=== PATIENT | male | born 1935 | race Caucasian/White ===

== ENCOUNTER 2016-09-20 00:41 | Emergency (ER) | payer MEDICARE ==
[~2016-09-20 00:41] MED LIST: ASPI81 PO; GLYB1TAB51 PO; IRBE150T51 PO; KLOR8TAB PO; MAGN400T PO; NIAS10004 PO; PIOG30 PO; PROT40TA PO; TAMS0.4C67 PO; TOPR25TA2 PO
[2016-09-20 00:43] VITALS: BP 136/90; PULSE 89; RESP 16; TEMP 97.4; O2SAT 95
[2016-09-20] MEDS ORDERED: NIAS1000 PO (01:14)
[2016-09-20] MEDS ORDERED: LISI-519 PO (01:14)
[2016-09-20] MEDS ORDERED: WARF-18 PO (01:14)
[2016-09-20] MEDS ORDERED: LOVA20TA PO (01:14)
[2016-09-20] MEDS ORDERED: ASPI81CH CHEW (01:14)
[2016-09-20] MEDS ORDERED: METO-309 PO (01:14)
[2016-09-20] MEDS ORDERED: SITA1TAB2 PO (01:14)
[2016-09-20] MEDS ORDERED: ALLO100T PO (01:14)
[2016-09-20] MEDS ORDERED: CARB10TA2 PO (01:14)
[2016-09-20] MEDS ORDERED: CARD120T4 PO (01:14)
[2016-09-20] MEDS ORDERED: TAMS5CAP PO (01:14)
[2016-09-20] MEDS ORDERED: FURO20TA PO (01:14)
[2016-09-20] MEDS ORDERED: METF500T PO (01:14)
[2016-09-20] MEDS ORDERED: LEVE500T8 PO (01:14)
[2016-09-20] MEDS ORDERED: LANO0.1212 PO (01:14)
[2016-09-20] MEDS ORDERED: BACT400T PO (01:15)
--- NOTE | 2016-09-20 02:03 | RADRPT ---
EXAM DATE/TIME: 09/20/2016 01:56 [facility] COMPARISON: No previous studies available for comparison. INDICATIONS : Trauma, fall. RADIATION DOSE: 39.84 CTDIvol (mGy) MEDICAL HISTORY : Hypertension. Diabetes mellitus type 2. Carcinoma, colon. SURGICAL HISTORY : None. ENCOUNTER: Initial ACUITY: 1 day PAIN SCALE: 2/10 LOCATION: cranial TECHNIQUE: Multiple contiguous axial images were obtained of the head. Using automated exposure control and adj ustment of the mA and/or kV according to patient size, radiation dose was kept as low as reasonably a chievable to obtain optimal diagnostic quality images. FINDINGS: CEREBRUM: Atrophy. The ventricles are normal for age. No evidence of midline shift, mass lesion, hemorrhage or acute infarction. No extra-axial fluid collections are seen. POSTERIOR FOSSA: The cerebellum and brainstem are intact. The 4th ventricle is midline. The cerebellopontine angle i s unremarkable. EXTRACRANIAL: The visualized portion of the orbits is intact. SKULL: Prior left parietal craniotomy. The calvaria is intact. No evidence of skull fracture. CONCLUSION: No acute disease. Wagner Martinez Jr., MD on September 20, 2016 at 2:01 Board Certified Radiologist. This report was verified electronically.
--- NOTE | 2016-09-20 02:16 | PD ---
HPI Chief Complaint: Fall Time Seen by Provider: 01:17 Travel History International Travel<30 days: No Contact w/Intl Traveler<30days: No Traveled to known affect area: No History of Present Illness HPI The patient is an 81-year-old male that apparently lost balance and fell onto a box tonight at about 0015 this morning. There was apparently no loss of consciousness and the patient has no nausea or vomiting. He is on Coumadin. He has had brain surgery in the past from a traumatic incident and 2015. His tetanus shot is about 2 years ago. PFSH Past Medical History Hx Anticoagulant Therapy: Yes (COUMADIN) Arthritis: Yes Asthma: No Autoimmune Disease: No Blood Disorders: No Anxiety: No Depression: No Heart Rhythm Problems: Yes Cancer: Yes (COLON) Cardiovascular Problems: Yes High Cholesterol: No Chemotherapy: No Chest Pain: Yes Congestive Heart Failure: No COPD: No Cerebrovascular Accident: No Coronary Artery Disease: Yes Diabetes: Yes Patient Takes Glucophage: Yes Diminished Hearing: No Endocrine: Yes Gastrointestinal Disorders: Yes GERD: No Glaucoma: No Headaches: No Hepatitis: No Hiatal Hernia: No Heparin Induced Thrombocytopen: No Hypertension: Yes Immune Disorder: No Implanted Vascular Access Dvce: No Kidney Stones: No Musculoskeletal: Yes Psychiatric: No Reproductive: No Respiratory: No Immunizations Current: Yes Migraines: No Myocardial Infarction: No Radiation Therapy: No Renal Failure: No Seizures: No Sickle Cell Disease: No Sleep Apnea: No Thyroid Disease: No Ulcer: No Tetanus Vaccination: Unknown Influenza Vaccination: No Past Surgical History Abdominal Surgery: No AICD: No Appendectomy: No Cardiac Surgery: Yes (3 vessel cabg 2001) Cholecystectomy: No Coronary Artery Bypass Graft: Yes Ear Surgery: No Endocrine Surgery: No Eye Surgery: No Genitourinary Surgery: No Gynecologic Surgery: No Insulin Pump: No Joint Replacement: No Neurologic Surgery: No Oral Surgery: No Pacemaker: No Thoracic Surgery: No Tonsillectomy: Yes Other Surgery: Yes Social History Alcohol Use: No Tobacco Use: No Substance Use: No Allergies-Medications (Allergen,Severity, Reaction): Coded Allergies: No Known Allergies (Verified , 09/20/16) Reported Meds & Prescriptions Reported Meds & Active Scripts Active Reported Bactrim (Sulfamethoxazole-Trimethoprim) 400-80 Mg Tab 1 Tab PO BID Warfarin 2.5 Mg Tab 2.5 Mg PO DAILY Niaspan (Niacin ER) 1,000 Mg Tab 1,000 Mg PO HS Lopressor (Metoprolol Tartrate) 50 Mg Tab 50 Mg PO BID Lovastatin 20 Mg Tab 20 Mg PO DAILY Lisinopril 5 Mg Tab 5 Mg PO DAILY Levetiracetam 500 Mg Tab 500 Mg PO BID Januvia (Sitagliptin Phosphate) 100 Mg Tab 100 Mg PO DAILY Metformin (Metformin HCl) 500 Mg Tab 500 Mg PO BIDPC With meals Furosemide 20 Mg Tab 20 Mg PO DAILY Flomax (Tamsulosin HCl) 0.4 Mg Cap 0.8 Mg PO HS Cardizem (Diltiazem HCl) 120 Mg Tab 180 Mg PO DAILY Lanoxin (Digoxin) 0.125 Mg Tab 125 Mcg PO DAILY Carbidopa-Levodopa 10-100 Mg Tab 1 Tab PO Q8HR Allopurinol 100 Mg Tab 100 Mg PO DAILY Aspirin 81 Mg Chew 81 Mg CHEW DAILY Review of Systems ROS Limitations: Poor Historian Except as stated in HPI: all other systems reviewed are Neg Physical Exam Narrative GENERAL: Well-nourished, slightly confused, elderly patient in no apparent distress. His vital signs are normal. SKIN: Warm and dry. HEAD: Normocephalic. There are multiple abrasions around the patient's face and right ear, these will be cleaned and bandaged. No active bleeding is present. Neither raccoon eyes or gonzalez sign is present. EYES: No scleral icterus. No injection or drainage. NECK: Supple, trachea midline. No JVD or lymphadenopathy. There is no neck tenderness present. CARDIOVASCULAR: Regular rate and rhythm without murmurs, gallops, or rubs. RESPIRATORY: Breath sounds equal bilaterally. No accessory muscle use. GASTROINTESTINAL: Abdomen soft, non-tender, nondistended. MUSCULOSKELETAL: No cyanosis, or edema. BACK: Nontender without obvious deformity. No CVA tenderness. Data Data Last Documented VS Vital Signs Date Time Temp Pulse Resp B/P Pulse Ox O2 Delivery O2 Flow Rate FiO2 09/20/16 01:24 16 09/20/16 00:43 97.4 89 136/[address] Brain W/O Iv Contrast(Rout) (09/20/16 01:17) MDM Medical Decision Making Medical Screen Exam Complete: Yes Emergency Medical Condition: Yes Medical Record Reviewed: Yes Interpretation(s) The CT brain shows no acute disease. It does show that the patient has had a prior left parietal craniotomy. No evidence of skull fracture. Differential Diagnosis Abrasions scalp and face, contusion face, scalp, fractured skull, intracranial bleed Narrative Course The patient appears to have only abrasions and contusions of the scalp and face. These will need cleaning but the patient otherwise appears to be doing fairly well following the fall. Diagnosis Primary Impression: Contusion of face, scalp and neck Additional Instructions: Bring Mr. Pino and should he start vomiting or have mental status change. Make sure that he is not allowed to trip over objects in the floor and make sure that the lighting is good in the house. Follow-up with his primary care physician when you get back to [place]. Med/Other Pt SpecificInfo: No Change to Meds Disposition: 01 DISCHARGE HOME Condition: Stable Pérez Brennan MD Sep 20, 2016 02:16
== END 2016-09-20 02:41 | disposition home or self-care (01) ==
LOC: EDSEX → NEPC 00:41
DX: S00.83XA Contusion of other part of head, initial encounter (principal); S00.03XA Contusion of scalp, initial encounter; S10.93XA Contusion of unspecified part of neck, initial encounter; S00.81XA Abrasion of other part of head, initial encounter; S00.411A Abrasion of right ear, initial encounter; I10 Essential (primary) hypertension; E11.9 Type 2 diabetes mellitus without complications; W18.39XA Other fall on same level, initial encounter; Z79.01 Long term (current) use of anticoagulants; Z79.84 Long term (current) use of oral hypoglycemic drugs; Z87.39 Personal history of other diseases of the musculoskeletal system and connective tissue; Z86.79 Personal history of other diseases of the circulatory system; Z85.038 Personal history of other malignant neoplasm of large intestine; Z87.19 Personal history of other diseases of the digestive system
CPT/HCPCS: 70450

== ENCOUNTER 2017-07-10 15:51 | Inpatient (IN) | payer MEDICARE ==
[~2017-07-10] VITALS: Ht 172.7 cm; Wt 77.0 kg
[2017-07-10] VITALS (7 sets, daily range): BP systolic 82–129; BP diastolic 46–64; PULSE 44–68; RESP 18; TEMP 97.3–98.2; O2SAT 96–99
[~2017-07-10 15:51] MED LIST changes: +ALLO100T PO; +ASPI-516 CHEW; -ASPI81 PO; +BACT400T PO; +CARB10TA2 PO; +CARD120T4 PO; +FURO20TA PO; -GLYB1TAB51 PO; -IRBE150T51 PO; -KLOR8TAB PO; +LANO0.1212 PO; +LEVE500T8 PO; +LISI-519 PO; +LOVA20TA PO; -MAGN400T PO; +METF500T PO; +METO-309 PO; +NIAS1000 PO; -NIAS10004 PO; -PIOG30 PO; -PROT40TA PO; +SITA1TAB2 PO; -TAMS0.4C67 PO; +TAMS5CAP PO; -TOPR25TA2 PO; +WARF-18 PO
--- NOTE | 2017-07-10 16:01 | PD ---
HPI Chief Complaint: syncope Time Seen by Provider: 16:01 Travel History International Travel<30 days: No Contact w/Intl Traveler<30days: No Traveled to known affect area: No History of Present Illness HPI 82-year-old male came to the emergency room brought in emergently from triage after he had a syncopal episode while coming out of the car. His daughter and came with him. In triage today or having difficulty time getting his blood pressure oxygen saturation. By the time patient came into the room and I went to see him he was awake and answering questions. The and the daughter were the main ones giving history. They said that this has happened to him multiple times in the past. He for past 1 month it has been occurring more frequently. 2 days ago he fell and hit his head. He is on warfarin. He has history of head bleed in the past. His blood pressure upon arrival was 82/ 46. He was awake and answering questions appropriately he is hard of hearing. PFSH Past Medical History Narrative Medical List of his past medical, surgical, social and family history is reviewed from the nursing note. Hx Anticoagulant Therapy: Yes (COUMADIN) Arthritis: Yes Asthma: No Autoimmune Disease: No Blood Disorders: No Anxiety: No Depression: No Heart Rhythm Problems: Yes Cancer: Yes (COLON) Cardiovascular Problems: Yes High Cholesterol: No Chemotherapy: No Chest Pain: Yes Congestive Heart Failure: No COPD: No Cerebrovascular Accident: No Coronary Artery Disease: Yes Diabetes: Yes Diminished Hearing: No Endocrine: Yes Gastrointestinal Disorders: Yes GERD: No Glaucoma: No Headaches: No Hepatitis: No Hiatal Hernia: No Heparin Induced Thrombocytopen: No Hypertension: Yes Immune Disorder: No Implanted Vascular Access Dvce: No Kidney Stones: No Musculoskeletal: Yes Psychiatric: No Reproductive: No Respiratory: No Immunizations Current: Yes Migraines: No Myocardial Infarction: No Radiation Therapy: No Renal Failure: No Seizures: No Sickle Cell Disease: No Sleep Apnea: No Thyroid Disease: No Ulcer: No Past Surgical History Abdominal Surgery: No AICD: No Appendectomy: No Cardiac Surgery: Yes (3 vessel cabg 2001) Cholecystectomy: No Coronary Artery Bypass Graft: Yes Ear Surgery: No Endocrine Surgery: No Eye Surgery: No Genitourinary Surgery: No Gynecologic Surgery: No Insulin Pump: No Joint Replacement: No Neurologic Surgery: No Oral Surgery: No Pacemaker: No Thoracic Surgery: No Tonsillectomy: Yes Other Surgery: Yes Social History Alcohol Use: No Tobacco Use: No Substance Use: No Allergies-Medications (Allergen,Severity, Reaction): Coded Allergies: No Known Allergies (Verified Allergy, Unknown, 07/10/17) Comments No known drug allergies. Reported Meds & Prescriptions Reported Meds & Active Scripts Active Reported Dutasteride 0.5 Mg Cap 0.5 Mg PO DAILY Levemir Inj (Insulin Detemir) 1,000 unit/ 10 ML Vial 50 Units SQ HS Do not mix with any other Insulin. Digoxin 0.125 Mg Tab 0.125 Mg PO DAILY Warfarin 2.5 Mg Tab 2.5 Mg PO DAILY friday, friday Niaspan (Niacin ER) 1,000 Mg Tab 1,000 Mg PO HS Lovastatin 20 Mg Tab 20 Mg PO DAILY Levetiracetam 500 Mg Tab 500 Mg PO BID Januvia (Sitagliptin Phosphate) 100 Mg Tab 100 Mg PO DAILY Metformin (Metformin HCl) 500 Mg Tab 500 Mg PO BIDPC With meals Furosemide 20 Mg Tab 20 Mg PO DAILY Flomax (Tamsulosin HCl) 0.4 Mg Cap 0.8 Mg PO HS Allopurinol 100 Mg Tab 100 Mg PO DAILY Aspirin 81 Mg Chew 81 Mg CHEW DAILY Narrative Medication List of her home medications reviewed from the nursing note. Review of Systems Except as stated in HPI: all other systems reviewed are Neg Cardiovascular: Positive: Syncope Physical Exam Narrative GENERAL: Awake, alert, elderly, frail SKIN: Focused skin assessment warm/dry. HEAD: Atraumatic. Normocephalic. EYES: Pupils equal and round. No scleral icterus. No injection or drainage. Ectropion both lower eyelids ENT: No nasal bleeding or discharge. Mucous membranes pink and moist. NECK: Trachea midline. No JVD. CARDIOVASCULAR: Regular rate and rhythm. No murmur appreciated. RESPIRATORY: No accessory muscle use. Clear to auscultation. Breath sounds equal bilaterally. GASTROINTESTINAL: Abdomen soft, non-tender, nondistended. Hepatic and splenic margins not palpable. MUSCULOSKELETAL: No obvious deformities. No clubbing. No cyanosis. No edema. NEUROLOGICAL: Awake and alert. No obvious cranial nerve deficits. Motor grossly within normal limits. Normal speech. PSYCHIATRIC: Appropriate mood and affect; insight and judgment normal. Data Data Last Documented VS Vital Signs Date Time Temp Pulse Resp B/P (MAP) Pulse Ox O2 Delivery O2 Flow Rate FiO2 1/11/18 19:03 65 18 110/54 (72) 99 Nasal Cannula 2.00 07/10/17 16:28 97.5 Orders Orders Electrocardiogram (07/10/17 16:09) Prothrombin Time / Inr (Pt) (07/10/17 16:09) Complete Blood Count With Diff (07/10/17 16:09) Basic Metabolic Panel (Bmp) (07/10/17 16:09) Troponin I (07/10/17 16:09) Urinalysis - C+S If Indicated (07/10/17 16:09) Ct Brain W/O Iv Contrast(Rout) (07/10/17 16:09) Ecg Monitoring (07/10/17 16:09) Iv Access Insert/Monitor (07/10/17 16:09) Oximetry (07/10/17 16:09) Sodium Chloride 0.9% Flush (Ns Flush) (07/10/17 16:15) Sodium Chlor 0.9% 1000 Ml Inj (Ns 1000 M (07/10/17 16:15) Digoxin (07/10/17 16:09) Chest, Single Ap (07/10/17 ) Sodium Chlorid 0.9% 500 Ml Inj (Ns 500 M (07/10/17 17:15) Admit Order (Ed Use Only) (07/10/17 19:09) Labs Laboratory Tests Test 07/10/17 15:50 White Blood Count 9.3 TH/MM3 Red Blood Count 3.89 MIL/MM3 Hemoglobin 12.1 GM/DL Hematocrit 35.8 % Mean Corpuscular Volume 92.0 FL Mean Corpuscular Hemoglobin 31.0 PG Mean Corpuscular Hemoglobin Concent 33.7 % Red Cell Distribution Width 16.3 % Platelet Count 179 TH/MM3 Mean Platelet Volume 7.3 FL Neutrophils (%) (Auto) 65.4 % Lymphocytes (%) (Auto) 21.2 % Monocytes (%) (Auto) 10.6 % Eosinophils (%) (Auto) 2.5 % Basophils (%) (Auto) 0.3 % Neutrophils # (Auto) 6.1 TH/MM3 Lymphocytes # (Auto) 2.0 TH/MM3 Monocytes # (Auto) 1.0 TH/MM3 Eosinophils # (Auto) 0.2 TH/MM3 Basophils # (Auto) 0.0 TH/MM3 CBC Comment DIFF FINAL Differential Comment Prothrombin Time 28.2 SEC Prothromb Time International Ratio 2.8 RATIO Blood Urea Nitrogen 26 MG/DL Creatinine 1.47 MG/DL Random Glucose 176 MG/DL Calcium Level 8.4 MG/DL Sodium Level 135 MEQ/L Potassium Level 3.9 MEQ/L Chloride Level 99 MEQ/L Carbon Dioxide Level 29.8 MEQ/L Anion Gap 6 MEQ/L Estimat Glomerular Filtration Rate 46 ML/MIN Troponin I 0.02 NG/ML Digoxin Level 0.8 NG/ML MDM Medical Decision Making Medical Screen Exam Complete: Yes Emergency Medical Condition: Yes Medical Record Reviewed: Yes Interpretation(s) Twelve-lead EKG was reviewed by me. A. fib and flutter, left axis deviation, right bundle branch block. Heart rate of 68 bpm. Differential Diagnosis Intracranial bleed, dysrhythmia, electrolyte abnormality Narrative Course 6:53 PM patient was given 1 L of IV fluid bolus which helped his blood pressure , but little. He was given another 500 ML's after that. Blood test results came back and within acceptable limit. Head CT was negative. However given the syncopal episode I would like to admit him for observation. I discussed with him and his and they have reluctantly agreed. Blood test was suggestive of some dehydration. Critical Care Narrative Aggregate critical care time was 45 minutes. Time to perform other separately billable procedures was not included in the critical care time. My time did not include minutes spent treating any other patients simultaneously or on activities that did not directly contribute to the patient's treatment. The services I provided to this patient were to treat and/or prevent clinically significant deterioration that could result in: Syncope, hypotension, dehydration I provided critical care services requiring my management, as noted below: Chart data review, documentation time, medication orders and management, vital sign assessments/reviewing monitor data, ordering and reviewing lab tests, ordering and interpreting/reviewing x-rays and diagnostic studies, care of the patient and discussion of the patient with the admitting physicians. Procedures EKG Prior to Arrival: No Diagnosis Primary Impression: Syncope Qualified Codes: R55 - Syncope and collapse Additional Impressions: Hypotension Qualified Codes: I95.9 - Hypotension, unspecified Dehydration Admitting Information Admitting Physician Requests: Observation Fabiola Ortiz MD Jul 10, 2017 16:01
[2017-07-10] MEDS ORDERED: SODIUM CHLOR 0.9% 1000 ML INJ 1,000 ML IV ONE (16:15)
[2017-07-10] MEDS ORDERED: SODIUM CHLORIDE 0.9% FLUSH 10 ML FLUSH IVF PRN (16:15)
[2017-07-10 16:52] LABS: AUTOMATED NEUTROPHIL # 6.1 TH/MM3 (1.8-7.7); BASOPHIL % 0.3 % (0.0-2.0); EOSINOPHIL # 0.2 TH/MM3 (0-0.4); EOSINOPHIL % 2.5 % (0.0-4.0); HEMATOCRIT 35.8 % (39.0-51.0); HEMOGLOBIN 12.1 GM/DL (13.0-17.0); LYMPH % 21.2 % (9.0-44.0); MEAN CORPUSCULAR HGB CONC 33.7 % (32.0-36.0); MEAN PLATELET VOLUME 7.3 FL (7.0-11.0); MONO % 10.6 % (0.0-8.0); NEUT % 65.4 % (16.0-70.0); PLATELET COUNT 179 TH/MM3 (150-450); RED BLOOD COUNT 3.89 MIL/MM3 (4.50-5.90); RED CELL DISTRIBUTION WIDTH 16.3 % (11.6-17.2); WHITE BLOOD COUNT 9.3 TH/MM3 (4.0-11.0)
[2017-07-10] MEDS ORDERED: DUTA1CAP2 PO (16:57)
[2017-07-10] MEDS ORDERED: LEVEMIR SQ (16:57)
[2017-07-10] MEDS ORDERED: DIGO0.12 PO (16:57)
[2017-07-10 17:03] LABS: INTERNATIONAL NORMALIZED RATIO 2.8 RATIO; PROTHROMBIN TIME - PATIENT 28.2 SEC (9.8-11.6)
--- NOTE | 2017-07-10 17:03 | RADRPT ---
EXAM DATE/TIME: 07/10/2017 16:39 [facility] COMPARISON: No previous studies available for comparison. INDICATIONS : Chest pain and weakness. MEDICAL HISTORY : Hypertension. Diabetes mellitus type 2. Carcinoma, colon. SURGICAL HISTORY : CABG. ENCOUNTER: Initial ACUITY: 1 day PAIN SCORE: 3/10 LOCATION: Bilateral chest FINDINGS: A single view of the chest demonstrates the lungs to be symmetrically aerated without evidence of mas s, infiltrate or effusion. There is mild streaky opacity in the left perihilar region most consistent with atelectasis or scarring. The cardiomediastinal contours are unremarkable. Osseous structures a re intact. The patient is status post median sternotomy. Atherosclerotic calcifications are present i n the aorta. There's implantable right-sided portacatheter in place. CONCLUSION: 1. Mild apparent scarring or atelectasis in the left midlung. 2. No acute cardiac pulmonary disease. Yaw Waggoner MD on July 10, 2017 at 16:57 Board Certified Radiologist. This report was verified electronically.
[2017-07-10 17:07] LABS: BICARBONATE 29.8 MEQ/L (21.0-32.0); CALCIUM 8.4 MG/DL (8.5-10.1); CREATININE 1.47 MG/DL (0.60-1.30)
[2017-07-10] MEDS ORDERED: SODIUM CHLORID 0.9% 500 ML INJ 500 ML IV ONE (17:15)
[2017-07-10 17:23] LABS: DIGOXIN 0.8 NG/ML (0.8-2.0); TROPONIN I 0.02 NG/ML (0.02-0.05)
--- NOTE | 2017-07-10 17:30 | RADRPT ---
EXAM DATE/TIME: 07/10/2017 17:05 [facility] COMPARISON: CT BRAIN W/O CONTRAST, September 20, 2016, 1:56. INDICATIONS : Fall two days ago, generalized weakness. RADIATION DOSE: 56.37 CTDIvol (mGy) MEDICAL HISTORY : Carcinoma, colon. Cardiovascular disease Hyperthyroidism.Diabetes. SURGICAL HISTORY : None. ENCOUNTER: Initial ACUITY: 2 days PAIN SCALE: 0/10 LOCATION: cranial TECHNIQUE: Multiple contiguous axial images were obtained of the head. Using automated exposure control and adj ustment of the mA and/or kV according to patient size, radiation dose was kept as low as reasonably a chievable to obtain optimal diagnostic quality images. DICOM format image data is available electro nically for review and comparison. FINDINGS: CEREBRUM: The ventricles are normal for age. No evidence of midline shift, mass lesion, hemorrhage or acute in farction. No extra-axial fluid collections are seen. POSTERIOR FOSSA: The cerebellum and brainstem are intact. The 4th ventricle is midline. The cerebellopontine angle i s unremarkable. EXTRACRANIAL: The visualized portion of the orbits is intact. SKULL: The calvaria is intact. No evidence of skull fracture. Postoperative changes are again noted with mu ltiple georgie holes. CONCLUSION: Stable noncontrast head CT with no evidence of fracture or hemorrhage. Yaw Waggoner MD on July 10, 2017 at 17:27 Board Certified Radiologist. This report was verified electronically.
[2017-07-10] MEDS ORDERED: NALOXONE HCL 0.4 MG/ML AMP IV PUSH PRN (20:00)
[2017-07-10] MEDS ORDERED: SODIUM CHLORIDE 0.9% FLUSH 10 ML FLUSH IV FLUSH PRN (20:00)
[2017-07-10] MEDS ORDERED: GLUCAGON 1 MG/ML VIAL OTHER PRN (20:30)
[2017-07-10] MEDS ORDERED: DEXTROSE 50% IN WATER 50 ML VIAL(D50) IV PUSH PRN (20:30)
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
[2017-07-10] MEDS: INSULIN ASPART SUPPLEMENTAL SCALE SQ SCH (21:00)
[2017-07-10] MEDS: SODIUM CHLORIDE 0.9% FLUSH 10 ML FLUSH IV FLUSH SCH (21:00)
[2017-07-10 21:24] LABS: AMORPHOUS SEDIMENT, URINE RARE; BACTERIA, URINE MANY /hpf; BILIRUBIN, URINE NEG (NEG); BLOOD, URINE SMALL (NEG); GLUCOSE,URINE NEG (NEG); HYALINE CAST, URINE 16 /lpf (RARE); KETONE, URINE TRACE mg/dL (NEG); NITRITE,URINE NEG (NEG); PH, URINE 5.5 (5.0-8.5); URINE COLOR YELLOW (YELLW/STRAW); URINE LEUKOCYTE ESTERASE LARGE (NEG)
[2017-07-10] MEDS ORDERED: TAMSULOSIN HCL 0.4 MG CAP PO SCH (21:45)
[2017-07-10] MEDS ORDERED: DIGOXIN 0.125 MG TAB PO ONE (22:00)
[2017-07-10] MEDS ORDERED: CARBIDOPA/LEVODOPA 10 MG/100 MG TAB PO SCH (22:00)
--- NOTE | 2017-07-10 22:35 | RADRPT ---
EXAM DATE/TIME: 07/10/2017 21:32 [facility] COMPARISON: No previous studies available for comparison. INDICATIONS : Syncope. MEDICAL HISTORY : Hypertension. Benign prostatic hyperplasia, (BPH) Left hand tremor. Coronary artery disease. Antico agulant therapy. Irregular heartbeat. Arthritis. Diabetes. Colon cancer. SURGICAL HISTORY : Tonsillectomy. CABG. ENCOUNTER: Initial ACUITY: 1 day PAIN SCORE: 0/10 LOCATION: Bilateral neck PEAK SYSTOLIC VELOCITIES (cm/sec): ICA/CCA RATIO: Right: 0.8 Left: 0.7 ICA: Right: 92 Left: 76 CCA: Right: 116 Left: 115 ECA: Right: 136 Left: 124 VERTEBRAL: Right: 32 antegrade Left: 53 antegrade Elevated flow velocities and ICA/CCA ratios have been found to correlate with increased degrees of vessel stenosis, calculated as percentage of diameter relative to a normal segment of distal ICA/CCA FINDINGS: RIGHT CAROTID: Mild to moderate plaque of the bulb and proximal internal carotid artery with 30% or less narrowing. LEFT CAROTID: Long segment moderate to severe atherosclerotic plaque beginning at the level of the mid common carot id and extending into the bulb and proximal ICA. 50% or less narrowing estimated. Doppler interrogati on within normal limits. VERTEBRAL ARTERIES: Antegrade flow is seen in both vertebral arteries. MISCELLANEOUS: None. CONCLUSION: Bilateral carotid atherosclerosis, mild to moderate and fairly focal on the right, moderate and longe r segment on the left. Please see above. No hemodynamically significant stenosis demonstrated on [facility] side. Macario Hollis MD on July 10, 2017 at 22:31 Board Certified Radiologist. This report was verified electronically.
[2017-07-11] VITALS (15 sets, daily range): BP systolic 66–141; BP diastolic 43–89; PULSE 66–146; RESP 18–20; TEMP 96.1–98.2; O2SAT 91–99
[2017-07-11] MEDS ORDERED: cefTRIAXone INJ 1,000 MG in SODIUM CHLORIDE 0.9% INJ 100 ML IV SCH (00:15)
[2017-07-11] MEDS: NIACIN 500 MG EXTENDED RELEASE TAB PO SCH ×2 (00:15→20:59)
[2017-07-11] MEDS: levETIRAcetam 500 MG TAB PO SCH ×3 (00:15→21:00)
[2017-07-11 00:53] LABS: TROPONIN I 0.02 NG/ML (0.02-0.05)
[2017-07-11] MEDS ORDERED: CARB25TA9 PO (00:58)
[2017-07-11] MEDS ORDERED: LISI2.5T3 PO (01:01)
[2017-07-11] MEDS ORDERED: METO25TA3 PO (01:03)
[2017-07-11] MEDS ORDERED: WARF-23 PO (01:07)
[2017-07-11 04:12] LABS: AUTOMATED NEUTROPHIL # 6.7 TH/MM3 (1.8-7.7); BASOPHIL % 0.5 % (0.0-2.0); EOSINOPHIL # 0.2 TH/MM3 (0-0.4); EOSINOPHIL % 2.4 % (0.0-4.0); HEMATOCRIT 33.7 % (39.0-51.0); HEMOGLOBIN 11.5 GM/DL (13.0-17.0); LYMPH % 15.5 % (9.0-44.0); LYMPHOCYTE # 1.4 TH/MM3 (1.0-4.8); MEAN CELL VOLUME 91.6 FL (80.0-100.0); MEAN CORPUSCULAR HEMOGLOBIN 31.2 PG (27.0-34.0); MEAN PLATELET VOLUME 7.7 FL (7.0-11.0); MONO % 8.8 % (0.0-8.0); MONOCYTE # 0.8 TH/MM3 (0-0.9); NEUT % 72.8 % (16.0-70.0); PLATELET COUNT 137 TH/MM3 (150-450); RED BLOOD COUNT 3.67 MIL/MM3 (4.50-5.90); RED CELL DISTRIBUTION WIDTH 15.9 % (11.6-17.2); WHITE BLOOD COUNT 9.3 TH/MM3 (4.0-11.0)
[2017-07-11 04:23] LABS: INTERNATIONAL NORMALIZED RATIO 3.2 RATIO; PROTHROMBIN TIME - PATIENT 31.9 SEC (9.8-11.6)
[2017-07-11 04:46] LABS: BICARBONATE 28.2 MEQ/L (21.0-32.0); CALCIUM 7.8 MG/DL (8.5-10.1); CREATININE 1.04 MG/DL (0.60-1.30)
[2017-07-11 04:50] LABS: TROPONIN I 0.03 NG/ML (0.02-0.05)
[2017-07-11] MEDS: CARBIDOPA/LEVODOPA 25 MG/100 MG TAB PO SCH ×3 (06:02→21:00)
[2017-07-11] MEDS ORDERED: SODIUM CHLOR 0.9% 250 ML INJ 250 ML IV ONE (06:30)
[2017-07-11] MEDS: ACETAMINOPHEN 325 MG TAB PO PRN (06:32)
[2017-07-11] MEDS: INSULIN ASPART SUPPLEMENTAL SCALE SQ SCH (08:00)
[2017-07-11] MEDS ORDERED: DIGOXIN 0.125 MG TAB PO SCH (09:00)
[2017-07-11] MEDS ORDERED: PRAVASTATIN SOD 20 MG TAB PO SCH (09:00)
--- NOTE | 2017-07-11 09:36 | HHI.FF ---
Face to Face Verification Diagnosis: (1) Diabetes (2) Parkinson disease (3) Hypotension (4) Syncope Physical Therapy Order: Evaluate and Treat, Improve ambulation, Strength and gait training Home Health Nursing Order: Medical education Signs/symptoms of disease process Diabetic education Nursing assessment with vital signs I have seen patient Karthik Price on 07/11/17. My clinical findings support the need for the requested home health care services because: Ltd mobility - disease progression Deconditioned w/ increased weakness Limited ability to care for self I certify that my clinical findings support that this patient is homebound because: Unsteady gait/balance Unsafe to leave home unassisted Unable to use public transportation Sun Hartman PA-C Jul 11, 2017 09:36
--- NOTE | 2017-07-11 09:39 | HHI.PR ---
Subjective Remarks in no acute distress. denies chest pain, sob or dizziness. HR and BP trend noted. family at the bedside. d/w the RN. Objective Vitals Vital Signs Date Time Temp Pulse Resp B/P (MAP) Pulse Ox O2 Delivery O2 Flow Rate FiO2 07/11/17 08:41 146 18 75/43 (54) 93 07/11/17 08:41 125 18 66/47 (53) 95 07/11/17 08:40 96.7 93 18 115/59 (77) 94 07/11/17 04:48 98.2 78 20 108/59 (75) 95 07/11/17 00:34 97.7 71 20 114/58 (76) 99 07/10/17 21:15 97.3 68 18 129/64 (85) 96 07/10/17 20:51 61 18 117/63 (81) 98 07/10/17 19:03 65 18 110/54 (72) 99 Nasal Cannula 2.00 07/10/17 17:38 47 18 101/52 (68) 99 Room Air 07/10/17 16:28 97.5 66 18 92/50 (64) 98 Nasal Cannula 2.00 07/10/17 16:12 98.1 44 18 82/46 (58) 96 07/10/17 15:52 98.2 Room Air I/O 07/10/17 07/10/17 07/10/17 07/11/17 07/11/17 07/11/17 07:00 15:00 23:00 07:00 15:00 23:00 Intake Total 1700 ml 100 ml 250 ml Output Total 400 ml Balance 1700 ml -300 ml 250 ml Intake Oral 200 ml IV Total 1500 ml 100 ml 250 ml Output Urine Total 400 ml Result Diagram: 07/11/17 0348 07/11/17 0348 Imaging Last Impressions Head CT 07/10/17 1609 Signed Impressions: Service Date/Time: June 17:05 - CONCLUSION: Stable noncontrast head CT with no evidence of fracture or hemorrhage. Yaw Waggoner MD Chest X-Ray 07/10/17 0000 Signed Impressions: Service Date/Time: June 16:39 - CONCLUSION: 1. Mild apparent scarring or atelectasis in the left midlung. 2. No acute cardiac pulmonary disease. Yaw Waggoner MD Carotid Artery Ultrasound 07/10/17 0000 Signed Impressions: Service Date/Time: June 21:32 - CONCLUSION: Bilateral carotid atherosclerosis, mild to moderate and fairly focal on the right, moderate and longer segment on the left. Please see above. No hemodynamically significant stenosis demonstrated on either side. Macario Hollis MD Objective Remarks GENERAL: elderly male, in no apparent distress. CARDIOVASCULAR: Regular rate and regular rhythm without murmurs, gallops, or rubs. RESPIRATORY: Clear to auscultation. Breath sounds equal bilaterally. No wheezes , rales, or rhonchi. GASTROINTESTINAL: Abdomen soft, non-tender, nondistended. Normal, active bowel sounds MUSCULOSKELETAL: some tenderness on the left chest wall NEURO: Alert & Oriented x4 to person, place, time, situation. Moves all ext x4 Medications and IVs Inpatient Medications Acetaminophen (Tylenol) 650 mg Q4H PRN PO pain Last administered on 07/11/17at 06:32; Start 07/11/17 at 06:30 Allopurinol (Zyloprim) 100 mg DAILY PO ; Start 07/11/17 at 09:00 Aspirin (Aspirin Chew) 81 mg DAILY CHEW ; Start 07/11/17 at 09:00 Carbidopa/Levodopa (Sinemet 25-100 Mg) 1 tab Q8HR PO Last administered on at 06:02; Start 07/11/17 at 06:00 Ceftriaxone Sodium 1000 mg/ Sodium Chloride 100 ml @ 200 mls/hr HS IV Last administered on 07/11/17at 01:41; Start 07/11/17 at 00:15 Dextrose (D50w (Vial) Inj) 50 ml UNSCH PRN IV PUSH HYPOGLYCEMIA-SEE COMMENTS; Start 07/10/17 at 20:30 Digoxin (Lanoxin) 0.125 mg ONCE ONCE PO Last administered on 07/11/17at 00:15; Start 07/10/17 at 22:00; Stop 07/10/17 at 22:03; Status DC Finasteride (Proscar) 5 mg DAILY PO ; Start 07/11/17 at 09:00 Glucagon (Glucagon Inj) 1 mg UNSCH PRN OTHER HYPOGLYCEMIA-SEE COMMENTS; Start 07/10/17 at 20:30 Influenza Virus Vaccine (Flu (Quadrivalent) Vaccine Inj) 0.5 ml ONCE ONCE IM ; Start 07/12/17 at 10:00; Stop 07/12/17 at 10:01 Insulin Aspart (NovoLOG SUPPLEMENTAL SCALE) 1 ACHS SLIDING SCALE SQ ; Start 05/17 at 21:00 Levetriacetam (Keppra) 500 mg BID PO Last administered on 07/11/17at 00:15; Start 07/10/17 at 21:45 Naloxone HCl (Narcan Inj) 0.4 mg UNSCH PRN IV PUSH SEE LABEL COMMENTS; Start at 20:00 Niacin (Slo-Niacin) 1,000 mg HS PO Last administered on 07/11/17at 00:15; Start 07/10/17 at 21:45 Pravastatin Sodium (Pravachol) 20 mg DAILY PO ; Start 07/11/17 at 09:00 Sodium Chloride 250 ml @ 250 mls/hr BOLUS ONCE IV Last administered on at 06:38; Start 07/11/17 at 06:30; Stop 07/11/17 at 07:29; Status DC Sodium Chloride (NS Flush) 2 ml BID IV FLUSH ; Start 07/10/17 at 21:00 Tamsulosin HCl (Flomax) 0.8 mg HS PO ; Start 07/11/17 at 09:00 Warfarin Sodium (Coumadin) 2.5 mg DAILY@1600 PO ; Start 07/11/17 at 16:00 A/P Problem List: (1) Hypotension ICD Code: I95.9 - Hypotension, unspecified Status: Acute (2) Syncope ICD Code: R55 - Syncope and collapse Status: Acute (3) Dehydration ICD Code: E86.0 - Dehydration Status: Acute Assessment and Plan A/P Hypotension - hold metoprolol, lisinopril, and lasix for now; consider reduction in doses prior to reinitiation - continue to monitor closely . recurrent Syncope -serial troponin negative - Carotid ultrasound to rule with no significant stenosis - 2-D echocardiogram to evaluate cardiac structure and function -consult cardiology. Dehydration - received IV fluid- -will monitor Acute on chronic renal insufficiency- improving -continue to monitor. - Avoid nephrotoxins Possible UTI - Ceftriaxone 1 g IV every 24 hours -Urine culture sent, follow results and adjust treatment accordingly left sided chest wall pain after a fall - check rib series Type 2 Diabetes Mellitus - Hold oral hypoglycemic agents - Accu-Cheks before meals and at bedtime with low-dose NovoLog sliding scale coverage - Hypoglycemia protocol - Monitor trends and blood glucose readings and adjust treatments as indicated DVT prophylaxis - On Coumadin ; hold today. - Recheck PT/INR in a.m. . Discharge Planning not ready for discharge- BP still on low-side- consulted cardiology today. Problem Qualifiers (1) Hypotension: Qualified Codes: I95.9 - Hypotension, unspecified (2) Syncope: Qualified Codes: R55 - Syncope and collapse Gumaro Rich MD Jul 11, 2017 09:39
[2017-07-11] MEDS: SODIUM CHLORIDE 0.9% FLUSH 10 ML FLUSH IV FLUSH SCH ×2 (09:44→21:00)
[2017-07-11] MEDS: ALLOPURINOL 100 MG TAB PO SCH (09:44)
[2017-07-11] MEDS: FINASTERIDE 5 MG TAB PO SCH (09:44)
[2017-07-11] MEDS: ASPIRIN 81 MG CHEW TAB CHEW SCH (09:44)
[2017-07-11] MEDS ORDERED: DIATRIZOATE MEGLUM/DIATRIZOATE SOD 9 ML CUP PO ONE (10:30)
[2017-07-11] MEDS: TAMSULOSIN HCL 0.4 MG CAP PO SCH ×2 (11:07→21:00)
--- NOTE | 2017-07-11 11:21 | MB ---
cc: DUDLEY DE LA FUENTE DATE OF CONSULTATION 07/11/2017 INDICATIONS Syncope HISTORY OF PRESENT ILLNESS This is an 82-year-old [place] mid [place]. He has a prior history of Parkinson's disease with , brain hemorrhage, rectal cancer status post chemotherapy in addition to coronary disease. He presents now with several recent syncopal events. He himself is a very poor historian and does not recall the events at all. Most of the history is obtained from his . She states that the majority, is not all, the events were while he was standing, either walking or just recently arose from a sitting position. The last syncopal episode occurred after using the bathroom. He stood up to wash his hands and then felt lightheaded and whoozy. He mentioned to his daughter who caught him as he started to pass out. He has had a couple falls, but no significant severe trauma. Denies any prodrome symptoms. No chest pain or shortness of breath or palpitations. These occurred now several days apart, but they have become more frequent recently. He has a history of atrial fibrillation but this morning developed some rapid ventricular rate. His blood pressure also dropped quite dramatically. I do not know if he had just recently gotten up to the bathroom or changed positions, but there was one systolic pressure in the 60s and 70 mmHg range. That did recover quite quickly. He had been on beta mario which was held on his initial hospitalization. He is currently going over a CT scanner now. I PAST MEDICAL HISTORY As mentioned above: 1. Pulmonary embolism 2. Brain hemorrhage 3. Rectal cancer status post chemotherapy and radiation 4. History of coronary disease with prior bypass surgery back in 2001. 5. Benign prostatic hypertrophy. 6. Diabetes 7. Hyperlipidemia PAST SURGICAL HISTORY He has a past surgical history includin. Craniotomy 2. CABG 3. Carotid endarterectomy 4. Inferior vena cava filter placement MEDICATIONS Reported medications include: 1. Levemir 2. Digoxin 3. Warfarin 4. Niaspan 5. Lopressor 6. Lovastatin 7. Lisinopril 8. Januvia 9. Metformin 10. Lasix 11. Flomax 12. Carbidopa 13. Allopurinol 14. Aspirin ALLERGIES NO KNOWN DRUG ALLERGIES. FAMILY HISTORY Denies any family history of early coronary disease or sudden cardiac . SOCIAL HISTORY Denies any alcohol, tobacco or drug use. REVIEW OF SYSTEMS A 12-point review of systems was performed and is negative unless otherwise as noted in the history of present illness. PHYSICAL EXAMINATION VITAL SIGNS: Temperature is 96, pulse is 73, blood pressure of 106/55 mmHg. GENERAL: Alert and oriented x3 in no acute distress. HEENT: Exam shows pupils reactive to light and accommodation. Extraocular movements are intact. NECK: No elevation of jugular venous distension. No thyromegaly. No lymphadenopathy. No carotid bruit. LUNGS: Clear to auscultation bilaterally. CARDIOVASCULAR: Reveals an irregular irregular rhythm without murmurs, rubs or gallops. ABDOMEN: Nontender, nondistended. Good bowel sounds. No hepatosplenomegaly. EXTREMITIES: Show no clubbing, cyanosis or edema. Good peripheral pulses. NEUROLOGIC: Cranial nerves intact. Motor sensory grossly intact. LABORATORY DATA WBC 9.3 hemoglobin is 11.5, platelet count 137, INR is 3.2. Sodium 139, potassium 4.2, BUN is 22, creatinine is 1.04, troponin is 0.03. Electrocardiogram shows atrial fibrillation, intraventricular conduction delay with right bundle-branch block. He has two premature ventricular complexes with left bundle-branch block morphology, nonspecific T-wave abnormality. ASSESSMENT 1. Syncope 2. Atrial fibrillation/atrial flutter 3. Coronary artery disease 4. Peripheral vascular disease and carotid disease. PLAN His symptoms sound somewhat more orthostatic primarily with positional changes and drop in blood pressure. His telemetry was reviewed, although he did have some short rapid ventricular rate, there is no significant prolonged pauses or arrhythmia. His home regimen included lisinopril and metoprolol both of which are being held now. Despite that, his blood pressure dropped precipitously this morning. It is not clear exactly what had preceded the even and if it was also related to a positional change. His INR is currently therapeutic. Not sure he is a great anticoagulation candidate at this point. He does have an inferior vena cava filter with a primary history of pulmonary embolism in addition to atrial fibrillation which would predispose him to risks for cardioembolic stroke, but given his falls, I think at this point it might even better off to hold his Coumadin and may be transition him to aspirin alone until we determine what the etiology is and then we can reinitiate on an outpatient basis. I talked with the family. I think given the frequency of these events, we can probably capture it on a 7-day event monitor. I will order for that. We will see how we can coordinate that either as an inpatient or outpatient transition or whether we have to have him set up as an outpatient alone. We will get a 2-D echocardiogram which is pending. We would also recommend holding his metoprolol and his lisinopril at this point encouraging aggressive hydration. We will also order for a digoxin level. MD MONICA Jaime/LIANNE /10:47 AM /10:58 AM
--- NOTE | 2017-07-11 11:25 | RADRPT ---
EXAM DATE/TIME: 07/11/2017 10:45 [facility] COMPARISON: No previous studies available for comparison. INDICATIONS : Rib pain post fall. MEDICAL HISTORY : Hypertension. Benign prostatic hyperplasia, (BPH) Left hand tremor. Coronary artery disease. Anticoag ulant therapy. Irregular heartbeat. Arthritis. Diabetes. Colon cancer. SURGICAL HISTORY : Tonsillectomy. CABG. ENCOUNTER: Subsequent ACUITY: 2 days PAIN SCORE: 5/10 LOCATION: Left Ribs. FINDINGS: [id number] on the on the right. There is no pneumothorax. Negative for displaced rib fracture. Mild compensated cardiomegaly CONCLUSION: Negative for rib fracture. Adalberto Ball MD FACR on July 11, 2017 at 11:07 Board Certified Radiologist. This report was verified electronically.
[2017-07-11] MEDS ORDERED: SODIUM CHLORID 0.9% 500 ML INJ 500 ML IV ONE (11:30)
[2017-07-11] MEDS ORDERED: DIGOXIN 0.125 MG TAB PO ONE (11:45)
[2017-07-11] MEDS ORDERED: LIDOCAINE HCL 1% PF 5 ML SYRINGE OTHER ONE (12:00)
[2017-07-11] MEDS ORDERED: PROPOFOL 200 MG/20 ML AMP IV ONE (12:00)
[2017-07-11] MEDS ORDERED: SUCCINYLCHOLINE CHLORIDE 200 MG/10 ML VIAL IV ONE (12:00)
--- NOTE | 2017-07-11 14:22 | EKG ---
Date Performed: 07/10/2017 Time Performed: 16:13:53 PTAGE: 82 years EKG: ATRIAL FLUTTER MARKED RIGHT AXIS DEVIATION RIGHT BUNDLE BRANCH BLOCK MODERATE T-WAVE ABNORM ALITY, CONSIDER INFERIOR ISCHEMIA ABNORMAL ECG INTERPRETATION BASED ON A DEFAULT AGE OF 40 YEARS PREVIOUS TRACING : 07/01/2008 00.21 DOCTOR: Suleman Adrian Interpretating Date/Time 07/11/2017 14:22:50
--- NOTE | 2017-07-11 14:25 | EKG ---
Date Performed: 07/10/2017 Time Performed: 23:18:41 PTAGE: 82 years EKG: ATRIAL FLUTTER MARKED LEFT AXIS DEVIATION RIGHT BUNDLE BRANCH BLOCK MODERATE T-WAVE ABNORMA LITY, CONSIDER LATERAL ISCHEMIA MODERATE T-WAVE ABNORMALITY, CONSIDER INFERIOR ISCHEMIA ABNORMAL ECG PREVIOUS TRACING : 07/10/2017 16.13 DOCTOR: Suleman Adrian Interpretating Date/Time 07/11/2017 14:23:12
--- NOTE | 2017-07-11 14:25 | EKG ---
Date Performed: 07/11/2017 Time Performed: 04:53:44 PTAGE: 82 years EKG: Atrial flutter MARKED LEFT AXIS DEVIATION RIGHT BUNDLE BRANCH BLOCK MODERATE T-WAVE ABNORMA LITY, CONSIDER INFERIOR ISCHEMIA ABNORMAL ECG PREVIOUS TRACING : 07/10/2017 23.18 DOCTOR: Suleman Adrian Interpretating Date/Time 07/11/2017 14:24:13
[2017-07-11] MEDS ORDERED: ATROPINE SULFATE 1 MG/10 ML SYRINGE ONE (15:16)
[2017-07-11] MEDS ORDERED: EPINEPHrine HCL (1:10,000) 1 MG/10 ML SYRINGE ONE (15:17)
[2017-07-11] MEDS ORDERED: IOHEXOL 350 MG/ML 10 ML VIAL (for RAD DIAG) IVCONTRAST ONE (15:58)
[2017-07-11] MEDS ORDERED: WARFARIN SOD 2.5 MG TAB PO SCH (16:00)
--- NOTE | 2017-07-11 16:31 | RADRPT ---
EXAM DATE/TIME: 07/11/2017 15:26 [facility] COMPARISON: No previous studies available for comparison. INDICATIONS : Left upper quadrant abdominal pain IV CONTRAST: 95 cc Omnipaque 350 (iohexol) IV ORAL CONTRAST: Prescribed oral contrast ingested. RADIATION DOSE: 11.10 CTDIvol (mGy) MEDICAL HISTORY : Hypertension. Cardiovascular disease Carcinoma, colon. SURGICAL HISTORY : CABG ENCOUNTER: Initial ACUITY: 1 day PAIN SCALE: 5/10 LOCATION: Left upper quadrant TECHNIQUE: Volumetric scanning of the abdomen and pelvis was performed. Using automated exposure control and ad justment of the mA and/or kV according to patient size, radiation dose was kept as low as reasonably achievable to obtain optimal diagnostic quality images. DICOM format image data is available electro nically for review and comparison. FINDINGS: LOWER LUNGS: Mild groundglass opacities at the lung bases. Prominent coronary artery calcifications. LIVER: Minimal focal fat adjacent falciform ligament. Liver is otherwise grossly unremarkable. No gallstones . SPLEEN: Normal size without lesion. PANCREAS: Within normal limits. KIDNEYS: Mild bilateral hydronephrosis and hydroureter extending to the UVJ. No radiopaque renal calculi. Susp ect exophytic cyst arising from the superior pole of the right kidney measuring 2.9 cm this measures indeterminate density. Kidneys are otherwise symmetrical in size and demonstrate symmetrical enhancem ent. There is no significant perinephric stranding. ADRENAL GLANDS: Within normal limits. VASCULAR: Moderate atherosclerotic desiccation of the infrarenal aorta. There is an IVC filter in place. BOWEL/MESENTERY: The stomach, small bowel, and colon demonstrate no acute abnormality. Mild sigmoid diverticulosis. A ppendix is visualized and normal in appearance. There is no free intraperitoneal air or fluid. ABDOMINAL WALL: Within normal limits. RETROPERITONEUM: There is no lymphadenopathy. BLADDER: Abnormal. Diffuse irregular bladder wall thickening particularly in the dome with small irregular sac culations. REPRODUCTIVE: Not specifically enlarged. 2 cm low-density region in the right posterior peripheral prostate gland. INGUINAL: There is no lymphadenopathy or hernia. MUSCULOSKELETAL: No significant abnormal lytic or blastic bony lesions. Degenerative spondylosis of the lumbar spine. CONCLUSION: 1. Diffuse irregular bladder wall thickening particularly near the dome with irregular sacculations a nd associated mild bilateral hydroureteronephrosis. Findings likely reflect bladder outlet obstructio n with mild post obstructive uropathy. However, differential consideration includes bladder malignanc y. 2. Nonspecific heterogeneous and heterogeneously prominent prostate gland. 3. Exophytic indeterminate cyst arising from the superior pole of right kidney measuring up to 2.9 cm . Statistically, this reflects a complex hemorrhagic or proteinaceous cyst. Followup examination may be performed with ultrasound exam in 6 months to determine stability as clinically warranted. 4. Prominent coronary artery calcifications. Rafael Lazar MD on July 11, 2017 at 16:17 Board Certified Radiologist. This report was verified electronically.
--- NOTE | 2017-07-11 17:40 | ECHRPT ---
Indication: SYNCOPE CONCLUSIONS Normal left ventricular size. Wall thickness is normal. The left ventricular systolic function is normal with an estimated ejection fraction in the range of 55-60%. The left atrial size is iypm-jy-ohtssoiuqc dilated. Rhyg-ju-lnxhcxfk mitral valve regurgitation. Moderate mitral annular calcification. Aortic valve sclerosis is present. There is mild tricuspid valve regurgitation. The estimated pulmonary arterial pressure is 40 mmHg. BP: 108 / 59 HR: Rhythm: Atrial fibrillation, Atrial flut ter MEASUREMENTS (Male / Female) Normal Values Technical Quality:Fair 2D ECHO LV Diastolic Diameter PLAX 5.0 cm 4.2 - 5.9 / 3.9 - 5.3 cm LV Systolic Diameter PLAX 3.8 cm IVS Diastolic Thickness 0.9 cm 0.6 - 1.0 / 0.6 - 0.9 cm LVPW Diastolic Thickness 0.9 cm 0.6 - 1.0 / 0.6 - 0.9 cm LV Relative Wall Thickness 0.4 RV Internal Dim ED PLAX 3.4 cm LVOT Diameter 2.0 cm Aortic Root Diameter 3.6 cm LA Systolic Diameter LX 4.0 cm 3.0 - 4.0 / 2.7 - 3.8 cm M-MODE AV Cusp Separation MM 1.8 cm DOPPLER AV Peak Velocity 179.5 cm/s AV Peak Gradient 12.9 mmHg AV Mean Gradient 8.0 mmHg AV Velocity Time Integral 35.1 cm LVOT Peak Velocity 81.5 cm/s LVOT Peak Gradient 2.7 mmHg LVOT Velocity Time Integral 17.1 cm AV Area Cont Eq vti 1.5 cm AV Area Cont Eq pk 1.4 cm Mitral E Point Velocity 169.0 cm/s Mitral A Point Velocity 115.0 cm/s Mitral E to A Ratio 1.5 LV E' Lateral Velocity 9.3 cm/s Mitral E to LV E' Lateral Ratio 18.3 LV E' Septal Velocity 4.8 cm/s Mitral E to LV E' Septal Ratio 35.4 TR Peak Velocity 276.0 cm/s TR Peak Gradient 30.5 mmHg PV Peak Velocity 63.2 cm/s PV Peak Gradient 1.6 mmHg FINDINGS LEFT VENTRICLE Normal left ventricular size. Wall thickness is normal. The left ventricular systolic function is normal with an estimated ejection fraction in the range of 55-60%. RIGHT VENTRICLE Normal right ventricular size and systolic function. LEFT ATRIUM The left atrial size is hroz-zt-dzjvlijget dilated. RIGHT ATRIUM The right atrial size is normal. ATRIAL SEPTUM No atrial level shunt is demonstrated by color flow Doppler interrogation. AORTA The aortic root and proximal ascending aorta are normal in size on limited imaging. MITRAL VALVE Shny-ma-yjkaivvb mitral valve regurgitation. Moderate mitral annular calcification. AORTIC VALVE Trileaflet aortic valve. No aortic valve stenosis or regurgitation. Aortic valve sclerosis is present. TRICUSPID VALVE There is mild tricuspid valve regurgitation. The estimated pulmonary arterial pressure is 40 mmHg. PULMONARY VALVE No pulmonary valve regurgitation or stenosis. VESSELS The inferior vena cava is normal in size. PERICARDIUM No pericardial effusion. Jacob Morin MD, FACC (Electronically Signed) Final Date:11 July 2017 17:39
[2017-07-11] MEDS ORDERED: TAMSULOSIN HCL 0.4 MG CAP PO SCH (21:00)
[2017-07-11] MEDS: cefTRIAXone INJ 1,000 MG in SODIUM CHLORIDE 0.9% INJ 100 ML IV SCH (21:00)
[2017-07-12] VITALS (19 sets, daily range): BP systolic 93–126; BP diastolic 43–70; PULSE 70–130; RESP 16–20; TEMP 97.7–98.5; O2SAT 94–98
[2017-07-12 04:19] LABS: INTERNATIONAL NORMALIZED RATIO 2.7 RATIO; PROTHROMBIN TIME - PATIENT 26.9 SEC (9.8-11.6)
[2017-07-12] MEDS: CARBIDOPA/LEVODOPA 25 MG/100 MG TAB PO SCH ×3 (05:24→21:13)
--- NOTE | 2017-07-12 07:40 | PD.CARD.PN ---
Subjective Subjective Remarks states patient has been resting comfortably. HR increased overnight ~110. no chest pain. requesting to go home soon. (Cori Rodriguez) Objective Medications Current Medications Medications (Trade) Dose Ordered Sig/Kimberley Route Start Time Stop Time Status Last Admin (NS Flush) 2 ml UNSCH PRN IV FLUSH 07/10/17 20:00 (NS Flush) 2 ml BID IV FLUSH 07/10/17 21:00 07/11/17 21:00 (Narcan Inj) 0.4 mg UNSCH PRN IV PUSH 07/10/17 20:00 (D50w (Vial) Inj) 50 ml UNSCH PRN IV PUSH 07/10/17 20:30 Future Hold (Glucagon Inj) 1 mg UNSCH PRN OTHER 07/10/17 20:30 Future Hold (NovoLOG SUPPLEMENTAL SCALE) 1 ACHS SLIDING SCALE SQ 07/10/17 21:00 Future Hold (Zyloprim) 100 mg DAILY PO 07/11/17 09:00 07/11/17 09:44 (Aspirin Chew) 81 mg DAILY CHEW 07/11/17 09:00 07/11/17 09:44 (Keppra) 500 mg BID PO 07/10/17 21:45 07/11/17 21:00 (Slo-Niacin) 1,000 mg HS PO 07/10/17 21:45 07/11/17 20:59 (Coumadin) 2.5 mg DAILY@1600 PO 07/11/17 16:00 Future Hold (Proscar) 5 mg DAILY PO 07/11/17 09:00 07/11/17 09:44 (Flomax) 0.8 mg HS PO 07/11/17 09:00 07/11/17 21:00 (Sinemet 25-100 Mg) 1 tab Q8HR PO 07/11/17 06:00 07/12/17 05:24 (Flu (Quadrivalent) Vaccine Inj) 0.5 ml ONCE ONCE IM 07/12/17 10:00 07/12/17 10:01 (Tylenol) 650 mg Q4H PRN PO 07/11/17 06:30 07/11/17 06:32 Pharmacy Profile Note 0 ml @ 0 mls/hr UNSCH OTHER 07/11/17 09:30 (Lanoxin) 0.25 mg DAILY PO 07/12/17 09:00 (Pravachol) 20 mg HS PO 07/12/17 21:00 Ceftriaxone Sodium 1000 mg/ Sodium Chloride 100 ml @ 200 mls/hr Q24H IV 07/11/17 21:00 07/11/17 21:00 Vital Signs / I&O Vital Signs Date Time Temp Pulse Resp B/P (MAP) Pulse Ox O2 Delivery O2 Flow Rate FiO2 07/12/17 07:06 80 07/12/17 06:23 123 07/12/17 05:11 95 07/12/17 04:03 98.5 85 101/51 (68) 95 07/12/17 03:00 87 07/12/17 00:18 97.7 70 126/67 (86) 95 07/12/17 00:00 72 07/11/17 23:00 71 07/11/17 22:00 70 07/11/17 21:00 103 07/11/17 20:00 89 07/11/17 20:00 97.4 88 112/60 (77) 96 07/11/17 19:00 70 07/11/17 16:05 97.5 103 18 113/64 (80) 96 07/11/17 12:38 97.0 116 20 112/69 (83) 96 07/11/17 11:41 75 18 83/54 (64) 96 07/11/17 11:40 75 18 89/59 (69) 96 07/11/17 11:40 97.1 66 18 91/64 (73) 96 07/11/17 11:34 96.1 131 18 141/89 (106) 91 07/11/17 09:40 106/55 (72) 07/11/17 08:41 146 18 75/43 (54) 93 07/11/17 08:41 125 18 66/47 (53) 95 07/11/17 08:40 96.7 93 18 115/59 (77) 94 I/O 07/11/17 07/11/17 07/11/17 07/12/17 07/12/17 07/12/17 07:00 15:00 23:00 07:00 15:00 23:00 Intake Total 100 ml 370 ml 980 ml 240 ml Output Total 400 ml 400 ml 600 ml 325 ml Balance -300 ml -30 ml 380 ml -85 ml Intake Oral 120 ml 480 ml 240 ml IV Total 100 ml 250 ml 500 ml Output Urine Total 400 ml 400 ml 600 ml 325 ml # Voids 2 # Bowel Movements 0 1 Physical Exam GENERAL: SKIN: Warm and dry. HEAD: Atraumatic. Normocephalic. EYES: Pupils equal and round. ENT: No nasal bleeding or discharge. NECK: Trachea midline. No JVD. CARDIOVASCULAR: irregular rate and rhythm. no murmurs RESPIRATORY: No accessory muscle use. Clear to auscultation. Breath sounds equal bilaterally. GASTROINTESTINAL: Abdomen soft, non-tender, nondistended. MUSCULOSKELETAL: Extremities without clubbing, cyanosis, or edema. No obvious deformities. NEUROLOGICAL: Awake and alert. No obvious cranial nerve deficits. Normal speech. Laboratory Laboratory Tests Test 07/12/17 03:49 Prothrombin Time 26.9 SEC Prothromb Time International Ratio 2.7 RATIO Imaging Last 48 hours Impressions Ribs X-Ray 07/11/17 0000 Signed Impressions: Service Date/Time: Tuesday, July 11, 2017 10:45 - CONCLUSION: Negative for rib fracture. Adalberto Ball MD FACR Abdomen/Pelvis CT 07/11/17 0000 Signed Impressions: Service Date/Time: Tuesday, July 11, 2017 15:26 - CONCLUSION: 1. Diffuse irregular bladder wall thickening particularly near the dome with irregular sacculations and associated mild bilateral hydroureteronephrosis. Findings likely reflect bladder outlet obstruction with mild post obstructive uropathy. However, differential consideration includes bladder malignancy. 2. Nonspecific heterogeneous and heterogeneously prominent prostate gland. 3. Exophytic indeterminate cyst arising from the superior pole of right kidney measuring up to 2.9 cm. Statistically, this reflects a complex hemorrhagic or proteinaceous cyst. Followup examination may be performed with ultrasound exam in 6 months to determine stability as clinically warranted. 4. Prominent coronary artery calcifications. Rafael Lazar MD Head CT 07/10/17 1609 Signed Impressions: Service Date/Time: June 17:05 - CONCLUSION: Stable noncontrast head CT with no evidence of fracture or hemorrhage. Yaw Waggoner MD (Cori Rodriguez) Assessment and Plan Problem List: (1) Dehydration ICD Codes: E86.0 - Dehydration Status: Acute (2) Syncope ICD Codes: R55 - Syncope and collapse Status: Acute (3) Hypotension ICD Codes: I95.9 - Hypotension, unspecified Status: Acute Assessment and Plan 82 yo WM with history of CAD, CABG, rectal cancer, pulmonary embolism s/p IVC filter, carotid disease, afib, diabetes and HTN admitted for syncopal episodes. syncope- likely due to orthostatic hydration. no episodes overnight. review of tele does not show prolonged pauses. cont IV hydration. SBP improved. afib- rate elevated ~ 110 at times, warfarin stopped due to fall risk. INR 2.7, digoxin level normal, cont asa echo normal EF, mild-mod MVR UTI- BPH, bladder outlet obstruction, abx. (Cori Rodriguez) Assessment and Plan HR's jumping up to 130-140 bpm while sleeping or just lying in bed. SBP 100 mmHg. cont dig. 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 unable to add CCB or BB due to SBP and suspect possible bradycardiac episodes Hold coumadin plan for probable AVN ablation and PPM friday. NPO p MN friday gentle hydration. may need to tolerate HR's till friday as long as not symptomatic fall precautions follow dig level (Jacob Morin MD) Problem Qualifiers (1) Syncope: Qualified Codes: R55 - Syncope and collapse (2) Hypotension: Qualified Codes: I95.9 - Hypotension, unspecified Cori Rodriguez Jul 12, 2017 07:40 Jacob Morin MD Jul 12, 2017 10:05
[2017-07-12] MEDS: ALLOPURINOL 100 MG TAB PO SCH (08:48)
[2017-07-12] MEDS: ASPIRIN 81 MG CHEW TAB CHEW SCH (08:48)
[2017-07-12] MEDS: levETIRAcetam 500 MG TAB PO SCH ×2 (08:48→21:13)
[2017-07-12] MEDS: FINASTERIDE 5 MG TAB PO SCH (08:48)
[2017-07-12] MEDS: ACETAMINOPHEN 325 MG TAB PO PRN (08:48)
[2017-07-12] MEDS: SODIUM CHLORIDE 0.9% FLUSH 10 ML FLUSH IV FLUSH SCH ×2 (08:49→21:00)
[2017-07-12] MEDS: DIGOXIN 0.25 MG TAB PO SCH (08:49)
--- NOTE | 2017-07-12 09:44 | HHI.PR ---
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 Objective Vital Signs Date Time Temp Pulse Resp B/P (MAP) Pulse Ox O2 Delivery O2 Flow Rate FiO2 07/12/17 07:06 80 07/12/17 06:23 123 07/12/17 05:11 95 07/12/17 04:03 98.5 85 101/51 (68) 95 07/12/17 03:00 87 07/12/17 00:18 97.7 70 126/67 (86) 95 07/12/17 00:00 72 07/11/17 23:00 71 07/11/17 22:00 70 07/11/17 21:00 103 07/11/17 20:00 89 07/11/17 20:00 97.4 88 112/60 (77) 96 07/11/17 19:00 70 07/11/17 16:05 97.5 103 18 113/64 (80) 96 07/11/17 12:38 97.0 116 20 112/69 (83) 96 07/11/17 11:41 75 18 83/54 (64) 96 07/11/17 11:40 75 18 89/59 (69) 96 07/11/17 11:40 97.1 66 18 91/64 (73) 96 07/11/17 11:34 96.1 131 18 141/89 (106) 91 07/11/17 09:40 106/55 (72) I/O 07/11/17 07/11/17 07/11/17 07/12/17 07/12/17 07/12/17 07:00 15:00 23:00 07:00 15:00 23:00 Intake Total 100 ml 370 ml 980 ml 240 ml Output Total 400 ml 400 ml 600 ml 325 ml Balance -300 ml -30 ml 380 ml -85 ml Intake Oral 120 ml 480 ml 240 ml IV Total 100 ml 250 ml 500 ml Output Urine Total 400 ml 400 ml 600 ml 325 ml # Voids 2 # Bowel Movements 0 1 Result Diagram: 07/11/178 07/11/17347 Imaging Last Impressions Ribs X-Ray 07/11/17 0000 Signed Impressions: Service Date/Time: Tuesday, July 11, 2017 10:45 - CONCLUSION: Negative for rib fracture. Adalberto Ball MD FACR Abdomen/Pelvis CT 07/11/17 0000 Signed Impressions: Service Date/Time: Tuesday, July 11, 2017 15:26 - CONCLUSION: 1. Diffuse irregular bladder wall thickening particularly near the dome with irregular sacculations and associated mild bilateral hydroureteronephrosis. Findings likely reflect bladder outlet obstruction with mild post obstructive uropathy. However, differential consideration includes bladder malignancy. 2. Nonspecific heterogeneous and heterogeneously prominent prostate gland. 3. Exophytic indeterminate cyst arising from the superior pole of right kidney measuring up to 2.9 cm. Statistically, this reflects a complex hemorrhagic or proteinaceous cyst. Followup examination may be performed with ultrasound exam in 6 months to determine stability as clinically warranted. 4. Prominent coronary artery calcifications. Rafael Lazar MD Head CT 07/10/17 1609 Signed Impressions: Service Date/Time: June 17:05 - CONCLUSION: Stable noncontrast head CT with no evidence of fracture or hemorrhage. Yaw Waggoner MD Chest X-Ray 07/10/17 0000 Signed Impressions: Service Date/Time: June 16:39 - CONCLUSION: 1. Mild apparent scarring or atelectasis in the left midlung. 2. No acute cardiac pulmonary disease. Yaw Waggoner MD Carotid Artery Ultrasound 07/10/17 0000 Signed Impressions: Service Date/Time: June 21:32 - CONCLUSION: Bilateral carotid atherosclerosis, mild to moderate and fairly focal on the right, moderate and longer segment on the left. Please see above. No hemodynamically significant stenosis demonstrated on either side. Macario Hollis MD Procedures None Other Results Laboratory Tests Test 07/10/17 15:50 07/10/17 20:40 07/11/17 03:48 07/12/17 03:49 Digoxin Level 0.8 NG/ML Urine Color YELLOW Urine Turbidity CLOUDY Urine pH 5.5 Urine Specific [place] 1.020 Urine Protein 30 mg/dL Urine Glucose (UA) NEG mg/dL Urine Ketones TRACE mg/dL Urine Occult Blood SMALL Urine Nitrite NEG Urine Bilirubin NEG Urine Urobilinogen 2.0 MG/DL Urine Leukocyte Esterase LARGE Urine RBC 89 /hpf Urine WBC /hpf Urine Amorphous Sediment RARE Urine Bacteria MANY /hpf Urine Hyaline Casts 16 /lpf Microscopic Urinalysis Comment CATH-CULTURE IND White Blood Count 9.3 TH/MM3 Red Blood Count 3.67 MIL/MM3 Hemoglobin 11.5 GM/DL Hematocrit 33.7 % Mean Corpuscular Volume 91.6 FL Mean Corpuscular Hemoglobin 31.2 PG Mean Corpuscular Hemoglobin Concent 34.0 % Red Cell Distribution Width 15.9 % Platelet Count 137 TH/MM3 Mean Platelet Volume 7.7 FL Neutrophils (%) (Auto) 72.8 % Lymphocytes (%) (Auto) 15.5 % Monocytes (%) (Auto) 8.8 % Eosinophils (%) (Auto) 2.4 % Basophils (%) (Auto) 0.5 % Neutrophils # (Auto) 6.7 TH/MM3 Lymphocytes # (Auto) 1.4 TH/MM3 Monocytes # (Auto) 0.8 TH/MM3 Eosinophils # (Auto) 0.2 TH/MM3 Basophils # (Auto) 0.0 TH/MM3 CBC Comment DIFF FINAL Differential Comment Blood Urea Nitrogen 22 MG/DL Creatinine 1.04 MG/DL Random Glucose 132 MG/DL Calcium Level 7.8 MG/DL Sodium Level 139 MEQ/L Potassium Level 4.2 MEQ/L Chloride Level 105 MEQ/L Carbon Dioxide Level 28.2 MEQ/L Anion Gap 6 MEQ/L Estimat Glomerular Filtration Rate 68 ML/MIN Total Creatine Kinase 72 U/L Troponin I 0.03 NG/ML Prothrombin Time 26.9 SEC Prothromb Time International Ratio 2.7 RATIO Objective Remarks GENERAL: This is a thin, frail appearing 82-year-old male patient, in no apparent distress. SKIN: No rashes. Cool and dry. HEAD: Atraumatic. Normocephalic. EYES: No scleral icterus. Left lower lid ectropion. ENT: Nose without bleeding, purulent drainage. The patient is moderately hearing-impaired. NECK: Trachea midline. No JVD.. CARDIOVASCULAR: Regular rate and rhythm without murmurs, gallops, or rubs. RESPIRATORY: Clear to auscultation. Breath sounds equal bilaterally. No wheezes , rales, or rhonchi. GASTROINTESTINAL: Abdomen soft, non-tender, nondistended. No guarding. MUSCULOSKELETAL: Extremities without clubbing, cyanosis, or edema. No calf tenderness. NEUROLOGICAL: Awake and alert. Motor and sensory grossly within normal limits. Normal speech. Medications and IVs Current Medications Medications (Trade) Dose Ordered Sig/Kimberley Route Start Time Stop Time Status Last Admin (NS Flush) 2 ml UNSCH PRN IV FLUSH 07/10/17 20:00 (NS Flush) 2 ml BID IV FLUSH 07/10/17 21:00 07/12/17 08:49 (Narcan Inj) 0.4 mg UNSCH PRN IV PUSH 07/10/17 20:00 (D50w (Vial) Inj) 50 ml UNSCH PRN IV PUSH 07/10/17 20:30 Future Hold (Glucagon Inj) 1 mg UNSCH PRN OTHER 07/10/17 20:30 Future Hold (NovoLOG SUPPLEMENTAL SCALE) 1 ACHS SLIDING SCALE SQ 07/10/17 21:00 Future Hold (Zyloprim) 100 mg DAILY PO 07/11/17 09:00 07/12/17 08:48 (Aspirin Chew) 81 mg DAILY CHEW 07/11/17 09:00 07/12/17 08:48 (Keppra) 500 mg BID PO 07/10/17 21:45 07/12/17 08:48 (Slo-Niacin) 1,000 mg HS PO 07/10/17 21:45 07/11/17 20:59 (Coumadin) 2.5 mg DAILY@1600 PO 07/11/17 16:00 Future Hold (Proscar) 5 mg DAILY PO 07/11/17 09:00 07/12/17 08:48 (Flomax) 0.8 mg HS PO 07/11/17 09:00 07/11/17 21:00 (Sinemet 25-100 Mg) 1 tab Q8HR PO 07/11/17 06:00 07/12/17 05:24 (Flu (Quadrivalent) Vaccine Inj) 0.5 ml ONCE ONCE IM 07/12/17 10:00 07/12/17 10:01 (Tylenol) 650 mg Q4H PRN PO 07/11/17 06:30 07/12/17 08:48 Pharmacy Profile Note 0 ml @ 0 mls/hr UNSCH OTHER 07/11/17 09:30 (Lanoxin) 0.25 mg DAILY PO 07/12/17 09:00 07/12/17 08:49 (Pravachol) 20 mg HS PO 07/12/17 21:00 Ceftriaxone Sodium 1000 mg/ Sodium Chloride 100 ml @ 200 mls/hr Q24H IV 07/11/17 21:00 07/11/17 21:00 A/P Assessment and Plan 1. Hypotension on hold Metoprolol, Lisinopril, And Lasix 2. 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 3. Parkinson's Disease to continue Home medicines 4. History of Rectal Cancer status post chemotherapy and radiation therapy 5. CAD with CABG in 2001. 6. Acute on chronic renal insufficiency- improving 7. UTI on Ceftriaxone Urine culture Proteus Mirabilis on Ceftriaxone 8. left sided Chest Wall pain after a fall with negative chest for ribs. 9. DM II continue sliding scale. DVT prophylaxis SCDs. awaiting for procedure next 07/14/17. Discussed with patient and his . Discharge Planning Once Cleared by computer operations specialist. Robinson Toscano MD Jul 12, 2017 09:44
[2017-07-12] MEDS ORDERED: INFLUENZA VIRUS VACCINE (QUADRIVALENT) 0.5 ML SYR IM ONE (10:00)
[2017-07-12] MEDS: SODIUM CHLOR 0.9% 1000 ML INJ 1,000 ML IV SCH ×2 (10:30→21:13)
--- NOTE | 2017-07-12 14:59 | EKG ---
Date Performed: 07/11/2017 Time Performed: 11:31:16 PTAGE: 82 years EKG: Supraventricular tachycardia, suspicious for 2:1 flutter Left anterior fascicular block Rig ht bundle branch block ABNORMAL ECG PREVIOUS TRACING : 07/11/2017 04.53 Ventricular rate is accelerated compared to the old tracing . DOCTOR: Ezio Richardson Interpretating Date/Time 07/12/2017 14:58:17
[2017-07-12] MEDS: cefTRIAXone INJ 1,000 MG in SODIUM CHLORIDE 0.9% INJ 100 ML IV SCH (21:00)
[2017-07-12] MEDS: TAMSULOSIN HCL 0.4 MG CAP PO SCH (21:13)
[2017-07-12] MEDS: PRAVASTATIN SOD 20 MG TAB PO SCH (21:13)
[2017-07-12] MEDS: NIACIN 500 MG EXTENDED RELEASE TAB PO SCH (21:13)
[2017-07-13] VITALS (21 sets, daily range): BP systolic 80–131; BP diastolic 49–69; PULSE 66–144; RESP 16–20; TEMP 97.7–99.2; O2SAT 94–97
[2017-07-13] MEDS: ACETAMINOPHEN 325 MG TAB PO PRN ×2 (03:50→20:47)
[2017-07-13] MEDS: SODIUM CHLOR 0.9% 1000 ML INJ 1,000 ML IV SCH ×2 (05:25→20:34)
[2017-07-13 05:31] LABS: INTERNATIONAL NORMALIZED RATIO 2.2 RATIO
[2017-07-13] MEDS: CARBIDOPA/LEVODOPA 25 MG/100 MG TAB PO SCH ×3 (06:16→20:47)
--- NOTE | 2017-07-13 07:52 | PD.CARD.PN ---
Subjective Subjective Remarks HR 120-140 bpm with ambulation, >100 bpm with rest. denies lightheadedness or chest pain. (Cori Rodriguez) Objective Medications Current Medications Medications (Trade) Dose Ordered Sig/Kimberley Route Start Time Stop Time Status Last Admin (NS Flush) 2 ml UNSCH PRN IV FLUSH 07/10/17 20:00 (NS Flush) 2 ml BID IV FLUSH 07/10/17 21:00 07/12/17 08:49 (Narcan Inj) 0.4 mg UNSCH PRN IV PUSH 07/10/17 20:00 (D50w (Vial) Inj) 50 ml UNSCH PRN IV PUSH 07/10/17 20:30 Future Hold (Glucagon Inj) 1 mg UNSCH PRN OTHER 07/10/17 20:30 Future Hold (NovoLOG SUPPLEMENTAL SCALE) 1 ACHS SLIDING SCALE SQ 07/10/17 21:00 Future Hold (Zyloprim) 100 mg DAILY PO 07/11/17 09:00 07/12/17 08:48 (Aspirin Chew) 81 mg DAILY CHEW 07/11/17 09:00 07/12/17 08:48 (Keppra) 500 mg BID PO 07/10/17 21:45 07/12/17 21:13 (Slo-Niacin) 1,000 mg HS PO 07/10/17 21:45 07/12/17 21:13 (Proscar) 5 mg DAILY PO 07/11/17 09:00 07/12/17 08:48 (Flomax) 0.8 mg HS PO 07/11/17 09:00 07/12/17 21:13 (Sinemet 25-100 Mg) 1 tab Q8HR PO 07/11/17 06:00 07/13/17 06:16 (Tylenol) 650 mg Q4H PRN PO 07/11/17 06:30 07/13/17 03:50 (Lanoxin) 0.25 mg DAILY PO 07/12/17 09:00 07/12/17 08:49 (Pravachol) 20 mg HS PO 07/12/17 21:00 07/12/17 21:13 Ceftriaxone Sodium 1000 mg/ Sodium Chloride 100 ml @ 200 mls/hr Q24H IV 07/11/17 21:00 07/12/17 21:00 Sodium Chloride 1,000 ml @ 84 mls/hr [id number] IV 07/12/17 10:00 07/13/17 05:25 Vital Signs / I&O Vital Signs Date Time Temp Pulse Resp B/P (MAP) Pulse Ox O2 Delivery O2 Flow Rate FiO2 07/13/17 06:04 80 07/13/17 05:03 133 07/13/17 05:00 18 07/13/17 04:00 136 07/13/17 03:00 99.2 142 18 108/69 (82) 95 07/13/17 03:00 142 07/13/17 02:06 92 07/13/17 01:00 70 07/13/17 00:00 95 07/12/17 23:00 79 07/12/17 23:00 98.2 89 16 122/70 (87) 94 07/12/17 22:00 99 07/12/17 21:00 82 07/12/17 20:00 86 07/12/17 19:00 81 07/12/17 19:00 98.1 79 20 93/43 (60) 98 07/12/17 16:00 98.0 71 101/58 (72) 96 07/12/17 15:33 70 07/12/17 14:08 82 07/12/17 12:00 80 07/12/17 12:00 98.5 74 108/60 (76) 97 07/12/17 10:00 130 07/12/17 09:00 120 07/12/17 08:00 98.0 103 102/59 (73) 96 I/O 07/12/17 07/12/17 07/12/17 07/13/17 07/13/17 07/13/17 07:00 15:00 23:00 07:00 15:00 23:00 Intake Total 240 ml 1400 ml 1585 ml Output Total 325 ml 350 ml 351 ml Balance -85 ml 1050 ml 1234 ml Intake Oral 240 ml 400 ml 600 ml IV Total 1000 ml 985 ml Output Urine Total 325 ml 350 ml 350 ml Stool Total 1 ml # Voids 2 Physical Exam GENERAL: SKIN: Warm and dry. HEAD: Atraumatic. Normocephalic. EYES: Pupils equal and round. ENT: No nasal bleeding or discharge. NECK: Trachea midline. No JVD. CARDIOVASCULAR: irregular rate and rhythm. no murmurs RESPIRATORY: No accessory muscle use. Clear to auscultation. Breath sounds equal bilaterally. GASTROINTESTINAL: Abdomen soft, non-tender, nondistended. MUSCULOSKELETAL: Extremities without clubbing, cyanosis, or edema. No obvious deformities. NEUROLOGICAL: Awake and alert. No obvious cranial nerve deficits. Normal speech. Laboratory Laboratory Tests Test 07/12/17 19:44 07/13/17 04:41 Digoxin Level 1.2 NG/ML Prothrombin Time 22.0 SEC Prothromb Time International Ratio 2.2 RATIO (Cori Rodriguez) Assessment and Plan Problem List: (1) Dehydration ICD Codes: E86.0 - Dehydration Status: Acute (2) Syncope ICD Codes: R55 - Syncope and collapse Status: Acute (3) Hypotension ICD Codes: I95.9 - Hypotension, unspecified Status: Acute Assessment and Plan 82 yo WM with history of CAD, CABG, rectal cancer, pulmonary embolism s/p IVC filter, carotid disease, afib, diabetes and HTN admitted for syncopal episodes. 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 HR 120-140 bpm with ambulation. no events on tele. SBP remains low and will not allow addition of CCB/bb. plan for AVN ablation/ PPM placement on friday npo after midnight afib- warfarin stopped due to fall risk. INR 2.7, digoxin level normal, cont asa echo normal EF, mild-mod MVR UTI- BPH, abx. (Cori Rodriguez) Assessment and Plan NPO p MN plan for AV kimberley ablation and PPM tomorrow INR trending down. Vit K today Consult Dr. Mondragon EP will have to tolerate HR's today. asymptomatic. gentle hydration. (Jacob Morin MD) Problem Qualifiers (1) Syncope: Qualified Codes: R55 - Syncope and collapse (2) Hypotension: Qualified Codes: I95.9 - Hypotension, unspecified Cori Rodriguez Jul 13, 2017 07:52 Jacob Morin MD Jul 13, 2017 09:53
[2017-07-13] MEDS: FINASTERIDE 5 MG TAB PO SCH (09:04)
[2017-07-13] MEDS: DIGOXIN 0.25 MG TAB PO SCH (09:04)
[2017-07-13] MEDS: ALLOPURINOL 100 MG TAB PO SCH (09:04)
[2017-07-13] MEDS: levETIRAcetam 500 MG TAB PO SCH ×2 (09:04→20:34)
[2017-07-13] MEDS: ASPIRIN 81 MG CHEW TAB CHEW SCH (09:04)
[2017-07-13] MEDS ORDERED: PHYTONADIONE 5 MG TAB PO ONE (10:00)
[2017-07-13] MEDS ORDERED: PHYTONADIONE 5 MG/SWFI 5 ML ORAL SYR PO ONE (11:00)
--- NOTE | 2017-07-13 15:45 | HHI.PR ---
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 07/14: Seen in his bedroom in the presence of his , awaiting for procedure for tomorrow, no nausea, vomit or diarrhea but is weak. Objective Vital Signs Date Time Temp Pulse Resp B/P (MAP) Pulse Ox O2 Delivery O2 Flow Rate FiO2 07/13/17 14:00 69 07/13/17 12:59 98.1 69 18 99/58 (72) 96 07/13/17 09:07 97.7 144 18 80/52 (61) 95 07/13/17 06:04 80 07/13/17 05:03 133 07/13/17 05:00 18 07/13/17 04:00 136 07/13/17 03:00 99.2 142 18 108/69 (82) 95 07/13/17 03:00 142 07/13/17 02:06 92 07/13/17 01:00 70 07/13/17 00:00 95 07/12/17 23:00 79 07/12/17 23:00 98.2 89 16 122/70 (87) 94 07/12/17 22:00 99 07/12/17 21:00 82 07/12/17 20:00 86 07/12/17 19:00 81 07/12/17 19:00 98.1 79 20 93/43 (60) 98 07/12/17 16:00 98.0 71 101/58 (72) 96 I/O 07/12/17 07/12/17 07/12/17 07/13/17 07/13/17 07/13/17 06:59 14:59 22:59 06:59 14:59 22:59 Intake Total 240 ml 1400 ml 1585 ml Output Total 325 ml 350 ml 351 ml Balance -85 ml 1050 ml 1234 ml Intake Oral 240 ml 400 ml 600 ml IV Total 1000 ml 985 ml Output Urine Total 325 ml 350 ml 350 ml Stool Total 1 ml # Voids 2 Result Diagram: 07/11/178 07/11/178 Imaging Last Impressions Ribs X-Ray 07/11/17 0000 Signed Impressions: Service Date/Time: Tuesday, July 11, 2017 10:45 - CONCLUSION: Negative for rib fracture. Adalberto Ball MD FACR Abdomen/Pelvis CT 07/11/17 0000 Signed Impressions: Service Date/Time: Tuesday, July 11, 2017 15:26 - CONCLUSION: 1. Diffuse irregular bladder wall thickening particularly near the dome with irregular sacculations and associated mild bilateral hydroureteronephrosis. Findings likely reflect bladder outlet obstruction with mild post obstructive uropathy. However, differential consideration includes bladder malignancy. 2. Nonspecific heterogeneous and heterogeneously prominent prostate gland. 3. Exophytic indeterminate cyst arising from the superior pole of right kidney measuring up to 2.9 cm. Statistically, this reflects a complex hemorrhagic or proteinaceous cyst. Followup examination may be performed with ultrasound exam in 6 months to determine stability as clinically warranted. 4. Prominent coronary artery calcifications. Rafael Lazar MD Head CT 07/10/17 1609 Signed Impressions: Service Date/Time: June 17:05 - CONCLUSION: Stable noncontrast head CT with no evidence of fracture or hemorrhage. Yaw Waggoner MD Chest X-Ray 07/10/17 0000 Signed Impressions: Service Date/Time: June 16:39 - CONCLUSION: 1. Mild apparent scarring or atelectasis in the left midlung. 2. No acute cardiac pulmonary disease. Yaw Waggoner MD Carotid Artery Ultrasound 07/10/17 0000 Signed Impressions: Service Date/Time: June 21:32 - CONCLUSION: Bilateral carotid atherosclerosis, mild to moderate and fairly focal on the right, moderate and longer segment on the left. Please see above. No hemodynamically significant stenosis demonstrated on either side. Macario Hollis MD Procedures None Other Results Laboratory Tests Test 07/10/17 20:40 07/11/17 03:48 07/12/17 19:44 07/13/17 04:41 Urine Color YELLOW Urine Turbidity CLOUDY Urine pH 5.5 Urine Specific [place] 1.020 Urine Protein 30 mg/dL Urine Glucose (UA) NEG mg/dL Urine Ketones TRACE mg/dL Urine Occult Blood SMALL Urine Nitrite NEG Urine Bilirubin NEG Urine Urobilinogen 2.0 MG/DL Urine Leukocyte Esterase LARGE Urine RBC 89 /hpf Urine WBC /hpf Urine Amorphous Sediment RARE Urine Bacteria MANY /hpf Urine Hyaline Casts 16 /lpf Microscopic Urinalysis Comment CATH-CULTURE IND White Blood Count 9.3 TH/MM3 Red Blood Count 3.67 MIL/MM3 Hemoglobin 11.5 GM/DL Hematocrit 33.7 % Mean Corpuscular Volume 91.6 FL Mean Corpuscular Hemoglobin 31.2 PG Mean Corpuscular Hemoglobin Concent 34.0 % Red Cell Distribution Width 15.9 % Platelet Count 137 TH/MM3 Mean Platelet Volume 7.7 FL Neutrophils (%) (Auto) 72.8 % Lymphocytes (%) (Auto) 15.5 % Monocytes (%) (Auto) 8.8 % Eosinophils (%) (Auto) 2.4 % Basophils (%) (Auto) 0.5 % Neutrophils # (Auto) 6.7 TH/MM3 Lymphocytes # (Auto) 1.4 TH/MM3 Monocytes # (Auto) 0.8 TH/MM3 Eosinophils # (Auto) 0.2 TH/MM3 Basophils # (Auto) 0.0 TH/MM3 CBC Comment DIFF FINAL Differential Comment Blood Urea Nitrogen 22 MG/DL Creatinine 1.04 MG/DL Random Glucose 132 MG/DL Calcium Level 7.8 MG/DL Sodium Level 139 MEQ/L Potassium Level 4.2 MEQ/L Chloride Level 105 MEQ/L Carbon Dioxide Level 28.2 MEQ/L Anion Gap 6 MEQ/L Estimat Glomerular Filtration Rate 68 ML/MIN Total Creatine Kinase 72 U/L Troponin I 0.03 NG/ML Digoxin Level 1.2 NG/ML Prothrombin Time 22.0 SEC Prothromb Time International Ratio 2.2 RATIO Objective Remarks GENERAL: This is a thin, frail appearing 82-year-old male patient, in no apparent distress. SKIN: No rashes. Cool and dry. HEAD: Atraumatic. Normocephalic. EYES: No scleral icterus. Left lower lid ectropion. ENT: Nose without bleeding, purulent drainage. The patient is moderately hearing-impaired. NECK: Trachea midline. No JVD.. CARDIOVASCULAR: Regular rate and rhythm without murmurs, gallops, or rubs. RESPIRATORY: Clear to auscultation. Breath sounds equal bilaterally. No wheezes , rales, or rhonchi. GASTROINTESTINAL: Abdomen soft, non-tender, nondistended. No guarding. MUSCULOSKELETAL: Extremities without clubbing, cyanosis, or edema. No calf tenderness. NEUROLOGICAL: Awake and alert. Motor and sensory grossly within normal limits. Normal speech. Medications and IVs Current Medications Medications (Trade) Dose Ordered Sig/Kimberley Route Start Time Stop Time Status Last Admin (NS Flush) 2 ml UNSCH PRN IV FLUSH 07/10/17 20:00 (NS Flush) 2 ml BID IV FLUSH 07/10/17 21:00 07/12/17 08:49 (Narcan Inj) 0.4 mg UNSCH PRN IV PUSH 07/10/17 20:00 (D50w (Vial) Inj) 50 ml UNSCH PRN IV PUSH 07/10/17 20:30 Future Hold (Glucagon Inj) 1 mg UNSCH PRN OTHER 07/10/17 20:30 Future Hold (NovoLOG SUPPLEMENTAL SCALE) 1 ACHS SLIDING SCALE SQ 07/10/17 21:00 Future Hold (Zyloprim) 100 mg DAILY PO 07/11/17 09:00 07/13/17 09:04 (Aspirin Chew) 81 mg DAILY CHEW 07/11/17 09:00 07/13/17 09:04 (Keppra) 500 mg BID PO 07/10/17 21:45 07/13/17 09:04 (Slo-Niacin) 1,000 mg HS PO 07/10/17 21:45 07/12/17 21:13 (Proscar) 5 mg DAILY PO 07/11/17 09:00 07/13/17 09:04 (Flomax) 0.8 mg HS PO 07/11/17 09:00 07/12/17 21:13 (Sinemet 25-100 Mg) 1 tab Q8HR PO 07/11/17 06:00 07/13/17 15:09 (Tylenol) 650 mg Q4H PRN PO 07/11/17 06:30 07/13/17 03:50 (Lanoxin) 0.25 mg DAILY PO 07/12/17 09:00 07/13/17 09:04 (Pravachol) 20 mg HS PO 07/12/17 21:00 07/12/17 21:13 Ceftriaxone Sodium 1000 mg/ Sodium Chloride 100 ml @ 200 mls/hr Q24H IV 07/11/17 21:00 07/12/17 21:00 Sodium Chloride 1,000 ml @ 84 mls/hr [id number] IV 07/12/17 10:00 07/13/17 05:25 A/P Assessment and Plan 1. Hypotension on hold Metoprolol, Lisinopril, And Lasix 2. 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 INR 2.2 given Vitamin K by vendor management specialist. 3. Parkinson's Disease to continue Home medicines 4. History of Rectal Cancer status post chemotherapy and radiation therapy 5. CAD with CABG in 2001. 6. Acute on chronic renal insufficiency- improved 7. UTI on Ceftriaxone Urine culture Proteus Mirabilis on Ceftriaxone 8. left sided Chest Wall pain after a fall with negative chest for ribs. 9. DM II continue sliding scale DVT prophylaxis SCDs. awaiting for procedure next 07/14/17. Discussed with patient and his . Discharge Planning Once Cleared by vendor management specialist. Robinson Toscano MD Jul 13, 2017 15:45
[2017-07-13] MEDS: TAMSULOSIN HCL 0.4 MG CAP PO SCH (20:33)
[2017-07-13] MEDS: cefTRIAXone INJ 1,000 MG in SODIUM CHLORIDE 0.9% INJ 100 ML IV SCH (20:33)
[2017-07-13] MEDS: SODIUM CHLORIDE 0.9% FLUSH 10 ML FLUSH IV FLUSH SCH (20:34)
[2017-07-13] MEDS: PRAVASTATIN SOD 20 MG TAB PO SCH (20:34)
[2017-07-13] MEDS: NIACIN 500 MG EXTENDED RELEASE TAB PO SCH (20:34)
[2017-07-13] MEDS ORDERED: INSULIN ASPART 1,000 UNITS/10 ML VIAL SQ ONE (21:15)
[2017-07-14] VITALS (24 sets, daily range): BP systolic 92–126; BP diastolic 53–78; PULSE 60–142; RESP 16–20; TEMP 98–98.5; O2SAT 92–96
[2017-07-14] MEDS: CARBIDOPA/LEVODOPA 25 MG/100 MG TAB PO SCH ×3 (06:37→22:13)
[2017-07-14] MEDS: ACETAMINOPHEN 325 MG TAB PO PRN (06:38)
[2017-07-14 07:11] LABS: INTERNATIONAL NORMALIZED RATIO 1.4 RATIO; PROTHROMBIN TIME - PATIENT 13.9 SEC (9.8-11.6)
[2017-07-14 07:43] LABS: BICARBONATE 24.8 MEQ/L (21.0-32.0); CALCIUM 7.7 MG/DL (8.5-10.1); CREATININE 0.72 MG/DL (0.60-1.30); MAGNESIUM 1.7 MG/DL (1.5-2.5); PHOSPHORUS 1.4 MG/DL (2.5-4.9)
--- NOTE | 2017-07-14 08:30 | PD.CARD.PN ---
Subjective Subjective Remarks no events overnight. remains in RVR HR 90-110. SBP ~110. no chest pain (Cori Rodriguez) Objective Medications Current Medications Medications (Trade) Dose Ordered Sig/Kimberley Route Start Time Stop Time Status Last Admin (NS Flush) 2 ml UNSCH PRN IV FLUSH 07/10/17 20:00 (NS Flush) 2 ml BID IV FLUSH 07/10/17 21:00 07/13/17 20:34 (Narcan Inj) 0.4 mg UNSCH PRN IV PUSH 07/10/17 20:00 (D50w (Vial) Inj) 50 ml UNSCH PRN IV PUSH 07/10/17 20:30 Future Hold (Glucagon Inj) 1 mg UNSCH PRN OTHER 07/10/17 20:30 Future Hold (NovoLOG SUPPLEMENTAL SCALE) 1 ACHS SLIDING SCALE SQ 07/10/17 21:00 Future Hold (Zyloprim) 100 mg DAILY PO 07/11/17 09:00 07/13/17 09:04 (Aspirin Chew) 81 mg DAILY CHEW 07/11/17 09:00 07/13/17 09:04 (Keppra) 500 mg BID PO 07/10/17 21:45 07/13/17 20:34 (Slo-Niacin) 1,000 mg HS PO 07/10/17 21:45 07/13/17 20:34 (Proscar) 5 mg DAILY PO 07/11/17 09:00 07/13/17 09:04 (Flomax) 0.8 mg HS PO 07/11/17 09:00 07/13/17 20:33 (Sinemet 25-100 Mg) 1 tab Q8HR PO 07/11/17 06:00 07/14/17 06:37 (Tylenol) 650 mg Q4H PRN PO 07/11/17 06:30 07/14/17 06:38 (Lanoxin) 0.25 mg DAILY PO 07/12/17 09:00 07/13/17 09:04 (Pravachol) 20 mg HS PO 07/12/17 21:00 07/13/17 20:34 Ceftriaxone Sodium 1000 mg/ Sodium Chloride 100 ml @ 200 mls/hr Q24H IV 07/11/17 21:00 07/13/17 20:33 Sodium Chloride 1,000 ml @ 84 mls/hr [id number] IV 07/12/17 10:00 07/13/17 05:25 Vital Signs / I&O Vital Signs Date Time Temp Pulse Resp B/P (MAP) Pulse Ox O2 Delivery O2 Flow Rate FiO2 07/14/17 07:50 98.5 121 18 110/72 (85) 92 07/14/17 07:50 92 Room Air 07/14/17 06:00 98 07/14/17 05:00 105 07/14/17 04:00 Room Air 07/14/17 04:00 98.1 95 20 126/72 (90) 92 07/14/17 04:00 95 07/14/17 03:00 89 07/14/17 02:00 82 07/14/17 01:00 76 07/14/17 00:00 72 07/13/17 23:48 98.3 72 18 88/49 (62) 94 07/13/17 23:48 Room Air 07/13/17 23:00 76 07/13/17 22:00 69 07/13/17 21:00 77 07/13/17 20:00 72 07/13/17 20:00 Room Air 07/13/17 20:00 98.0 72 20 131/66 (87) 97 07/13/17 17:00 85 07/13/17 16:09 97.8 66 16 101/57 (72) 96 07/13/17 14:00 69 07/13/17 13:00 74 07/13/17 12:59 98.1 69 18 99/58 (72) 96 07/13/17 11:00 79 07/13/17 10:00 111 07/13/17 09:07 97.7 144 18 80/52 (61) 95 07/13/17 09:00 143 I/O 07/13/17 07/13/17 07/13/17 07/14/17 07/14/17 07/14/17 07:00 15:00 23:00 07:00 15:00 23:00 Intake Total 1585 ml 1580 ml Output Total 351 ml 1001 ml 800 ml Balance 1234 ml -1001 ml 780 ml Intake Oral 600 ml 640 ml IV Total 985 ml 940 ml Output Urine Total 350 ml 1000 ml 800 ml Stool Total 1 ml 1 ml # Bowel Movements 0 Physical Exam GENERAL: SKIN: Warm and dry. HEAD: Atraumatic. Normocephalic. EYES: Pupils equal and round. ENT: No nasal bleeding or discharge. NECK: Trachea midline. No JVD. CARDIOVASCULAR: irregular rate and rhythm. no murmurs RESPIRATORY: No accessory muscle use. Clear to auscultation. Breath sounds equal bilaterally. GASTROINTESTINAL: Abdomen soft, non-tender, nondistended. MUSCULOSKELETAL: Extremities without clubbing, cyanosis, or edema. No obvious deformities. NEUROLOGICAL: Awake and alert. No obvious cranial nerve deficits. Normal speech. Laboratory Laboratory Tests Test 07/14/17 06:38 Prothrombin Time 13.9 SEC Prothromb Time International Ratio 1.4 RATIO Blood Urea Nitrogen 10 MG/DL Creatinine 0.72 MG/DL Random Glucose 160 MG/DL Calcium Level 7.7 MG/DL Phosphorus Level 1.4 MG/DL Magnesium Level 1.7 MG/DL Sodium Level 140 MEQ/L Potassium Level 3.6 MEQ/L Chloride Level 107 MEQ/L Carbon Dioxide Level 24.8 MEQ/L Anion Gap 8 MEQ/L Estimat Glomerular Filtration Rate 105 ML/MIN (Cori Rodriguez) Assessment and Plan Problem List: (1) Dehydration ICD Codes: E86.0 - Dehydration Status: Acute (2) Syncope ICD Codes: R55 - Syncope and collapse Status: Acute (3) Hypotension ICD Codes: I95.9 - Hypotension, unspecified Status: Acute Assessment and Plan 82 yo WM with history of CAD, CABG, rectal cancer, pulmonary embolism s/p IVC filter, carotid disease, afib, diabetes and HTN admitted for syncopal episodes. 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 HR remains ~ bpm with ambulation. no events on tele. SBP remains low and will not allow addition of CCB/bb. plan for AVN ablation/ PPM placement on friday npo after midnight afib- warfarin stopped due to fall risk. INR improved 1.5 digoxin level normal , cont asa echo normal EF, mild-mod MVR UTI- BPH, abx. (Cori Rodriguez) Assessment and Plan dr caleb MOELLER to see today for AVN ablation PPM (Jacob Morin MD) Problem Qualifiers (1) Syncope: Qualified Codes: R55 - Syncope and collapse (2) Hypotension: Qualified Codes: I95.9 - Hypotension, unspecified Cori Rodriguez Jul 14, 2017 08:30 Jacob Morin MD Jul 14, 2017 08:37
[2017-07-14] MEDS: FINASTERIDE 5 MG TAB PO SCH (09:58)
[2017-07-14] MEDS: ASPIRIN 81 MG CHEW TAB CHEW SCH (09:59)
[2017-07-14] MEDS: ALLOPURINOL 100 MG TAB PO SCH (09:59)
[2017-07-14] MEDS: SODIUM CHLORIDE 0.9% FLUSH 10 ML FLUSH IV FLUSH SCH ×2 (09:59→22:11)
[2017-07-14] MEDS: DIGOXIN 0.25 MG TAB PO SCH (09:59)
[2017-07-14] MEDS: levETIRAcetam 500 MG TAB PO SCH ×2 (10:00→22:11)
[2017-07-14] MEDS: SODIUM CHLOR 0.9% 1000 ML INJ 1,000 ML IV SCH ×2 (14:11→22:14)
[2017-07-14] MEDS ORDERED: MIDAZOLAM HCL 2 MG/2 ML VIAL ONE (14:41)
[2017-07-14] MEDS ORDERED: ISOPROTERENOL HCL 1 MG/5 ML AMP ONE (14:41)
--- NOTE | 2017-07-14 14:44 | HHI.PR ---
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 07/14: stable seen in his bedroom, in the presence of his and Daughter, No nausea, vomit or diarrhea, will have procedure this afternoon by Doctor Gerald Gonzalez Objective Vital Signs Date Time Temp Pulse Resp B/P (MAP) Pulse Ox O2 Delivery O2 Flow Rate FiO2 07/14/17 11:01 98.4 122 18 92/53 (66) 96 07/14/17 07:50 98.5 121 18 110/72 (85) 92 07/14/17 07:50 92 Room Air 07/14/17 06:00 98 07/14/17 05:00 105 07/14/17 04:00 Room Air 07/14/17 04:00 98.1 95 20 126/72 (90) 92 07/14/17 04:00 95 07/14/17 03:00 89 07/14/17 02:00 82 07/14/17 01:00 76 07/14/17 00:00 72 07/13/17 23:48 98.3 72 18 88/49 (62) 94 07/13/17 23:48 Room Air 07/13/17 23:00 76 07/13/17 22:00 69 07/13/17 21:00 77 07/13/17 20:00 72 07/13/17 20:00 Room Air 07/13/17 20:00 98.0 72 20 131/66 (87) 97 07/13/17 17:00 85 07/13/17 16:09 97.8 66 16 101/57 (72) 96 I/O 07/13/17 07/13/17 07/13/17 07/14/17 07/14/17 07/14/17 07:00 15:00 23:00 07:00 15:00 23:00 Intake Total 1585 ml 1580 ml Output Total 351 ml 1001 ml 800 ml Balance 1234 ml -1001 ml 780 ml Intake Oral 600 ml 640 ml IV Total 985 ml 940 ml Output Urine Total 350 ml 1000 ml 800 ml Stool Total 1 ml 1 ml # Bowel Movements 0 Result Diagram: 07/11/17 0348 07/14/17 0638 Imaging Last Impressions Ribs X-Ray 07/11/17 0000 Signed Impressions: Service Date/Time: Tuesday, July 11, 2017 10:45 - CONCLUSION: Negative for rib fracture. Adalberto Ball MD FACR Abdomen/Pelvis CT 07/11/17 0000 Signed Impressions: Service Date/Time: Tuesday, July 11, 2017 15:26 - CONCLUSION: 1. Diffuse irregular bladder wall thickening particularly near the dome with irregular sacculations and associated mild bilateral hydroureteronephrosis. Findings likely reflect bladder outlet obstruction with mild post obstructive uropathy. However, differential consideration includes bladder malignancy. 2. Nonspecific heterogeneous and heterogeneously prominent prostate gland. 3. Exophytic indeterminate cyst arising from the superior pole of right kidney measuring up to 2.9 cm. Statistically, this reflects a complex hemorrhagic or proteinaceous cyst. Followup examination may be performed with ultrasound exam in 6 months to determine stability as clinically warranted. 4. Prominent coronary artery calcifications. Rafael Lazar MD Head CT 07/10/17 1609 Signed Impressions: Service Date/Time: June 17:05 - CONCLUSION: Stable noncontrast head CT with no evidence of fracture or hemorrhage. Yaw Waggoner MD Chest X-Ray 07/10/17 0000 Signed Impressions: Service Date/Time: June 16:39 - CONCLUSION: 1. Mild apparent scarring or atelectasis in the left midlung. 2. No acute cardiac pulmonary disease. Yaw Waggoner MD Carotid Artery Ultrasound 07/10/17 0000 Signed Impressions: Service Date/Time: June 21:32 - CONCLUSION: Bilateral carotid atherosclerosis, mild to moderate and fairly focal on the right, moderate and longer segment on the left. Please see above. No hemodynamically significant stenosis demonstrated on either side. Macario Hollis MD Procedures None Other Results Laboratory Tests Test 07/10/17 20:40 07/11/17 03:48 07/12/17 19:44 07/14/17 06:38 Urine Color YELLOW Urine Turbidity CLOUDY Urine pH 5.5 Urine Specific Bartel[place] 1.020 Urine Protein 30 mg/dL Urine Glucose (UA) NEG mg/dL Urine Ketones TRACE mg/dL Urine Occult Blood SMALL Urine Nitrite NEG Urine Bilirubin NEG Urine Urobilinogen 2.0 MG/DL Urine Leukocyte Esterase LARGE Urine RBC 89 /hpf Urine WBC /hpf Urine Amorphous Sediment RARE Urine Bacteria MANY /hpf Urine Hyaline Casts 16 /lpf Microscopic Urinalysis Comment CATH-CULTURE IND White Blood Count 9.3 TH/MM3 Red Blood Count 3.67 MIL/MM3 Hemoglobin 11.5 GM/DL Hematocrit 33.7 % Mean Corpuscular Volume 91.6 FL Mean Corpuscular Hemoglobin 31.2 PG Mean Corpuscular Hemoglobin Concent 34.0 % Red Cell Distribution Width 15.9 % Platelet Count 137 TH/MM3 Mean Platelet Volume 7.7 FL Neutrophils (%) (Auto) 72.8 % Lymphocytes (%) (Auto) 15.5 % Monocytes (%) (Auto) 8.8 % Eosinophils (%) (Auto) 2.4 % Basophils (%) (Auto) 0.5 % Neutrophils # (Auto) 6.7 TH/MM3 Lymphocytes # (Auto) 1.4 TH/MM3 Monocytes # (Auto) 0.8 TH/MM3 Eosinophils # (Auto) 0.2 TH/MM3 Basophils # (Auto) 0.0 TH/MM3 CBC Comment DIFF FINAL Differential Comment Total Creatine Kinase 72 U/L Troponin I 0.03 NG/ML Digoxin Level 1.2 NG/ML Prothrombin Time 13.9 SEC Prothromb Time International Ratio 1.4 RATIO Blood Urea Nitrogen 10 MG/DL Creatinine 0.72 MG/DL Random Glucose 160 MG/DL Calcium Level 7.7 MG/DL Phosphorus Level 1.4 MG/DL Magnesium Level 1.7 MG/DL Sodium Level 140 MEQ/L Potassium Level 3.6 MEQ/L Chloride Level 107 MEQ/L Carbon Dioxide Level 24.8 MEQ/L Anion Gap 8 MEQ/L Estimat Glomerular Filtration Rate 105 ML/MIN Objective Remarks GENERAL: No acute distress. SKIN: No rashes. Cool and dry. HEAD: Atraumatic. Normocephalic. EYES: No scleral icterus. Left lower lid ectropion. ENT: Nose without bleeding, purulent drainage. The patient is moderately hearing-impaired. NECK: Trachea midline. No JVD.. CARDIOVASCULAR: Regular rate and rhythm without murmurs, gallops, or rubs. RESPIRATORY: Clear to auscultation. Breath sounds equal bilaterally. No wheezes , rales, or rhonchi. GASTROINTESTINAL: Abdomen soft, non-tender, nondistended. No guarding. MUSCULOSKELETAL: Extremities without clubbing, cyanosis, or edema. No calf tenderness. NEUROLOGICAL: Awake and alert. Motor and sensory grossly within normal limits. Normal speech. Medications and IVs Current Medications Medications (Trade) Dose Ordered Sig/Kimberley Route Start Time Stop Time Status Last Admin (NS Flush) 2 ml UNSCH PRN IV FLUSH 07/10/17 20:00 (NS Flush) 2 ml BID IV FLUSH 07/10/17 21:00 07/14/17 09:59 (Narcan Inj) 0.4 mg UNSCH PRN IV PUSH 07/10/17 20:00 (D50w (Vial) Inj) 50 ml UNSCH PRN IV PUSH 07/10/17 20:30 Future Hold (Glucagon Inj) 1 mg UNSCH PRN OTHER 07/10/17 20:30 Future Hold (NovoLOG SUPPLEMENTAL SCALE) 1 ACHS SLIDING SCALE SQ 07/10/17 21:00 Future Hold (Zyloprim) 100 mg DAILY PO 07/11/17 09:00 07/14/17 09:59 (Aspirin Chew) 81 mg DAILY CHEW 07/11/17 09:00 07/14/17 09:59 (Keppra) 500 mg BID PO 07/10/17 21:45 07/14/17 10:00 (Slo-Niacin) 1,000 mg HS PO 07/10/17 21:45 07/13/17 20:34 (Proscar) 5 mg DAILY PO 07/11/17 09:00 07/14/17 09:58 (Flomax) 0.8 mg HS PO 07/11/17 09:00 07/13/17 20:33 (Sinemet 25-100 Mg) 1 tab Q8HR PO 07/11/17 06:00 07/14/17 14:11 (Tylenol) 650 mg Q4H PRN PO 07/11/17 06:30 07/14/17 06:38 (Lanoxin) 0.25 mg DAILY PO 07/12/17 09:00 07/14/17 09:59 (Pravachol) 20 mg HS PO 07/12/17 21:00 07/13/17 20:34 Ceftriaxone Sodium 1000 mg/ Sodium Chloride 100 ml @ 200 mls/hr Q24H IV 07/11/17 21:00 07/13/17 20:33 Sodium Chloride 1,000 ml @ 84 mls/hr [id number] IV 07/12/17 10:00 07/14/17 14:11 A/P Assessment and Plan 1. Hypotension on hold Metoprolol, Lisinopril, And Lasix 2. 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 INR 1.4 today. 3. Parkinson's Disease to continue Home medicines 4. History of Rectal Cancer status post chemotherapy and radiation therapy 5. CAD with CABG in 2001. 6. Acute on chronic renal insufficiency- improved 7. UTI on Ceftriaxone Urine culture Proteus Mirabilis on Ceftriaxone 8. left sided Chest Wall pain after a fall with negative chest for ribs. 9. DM II continue sliding scale better management 10. Hypomagnesemia and Hypophosphatemia giving replacement DVT prophylaxis SCDs. awaiting for procedure Today. Discussed with patient, his and Daughter discussed with nurse Miss Sibley Discharge Planning Once Cleared by farm specialist. Robinson Toscano MD Jul 14, 2017 14:44
[2017-07-14] MEDS ORDERED: VANCOMYCIN HCL 1000 MG VIAL ONE (14:48)
[2017-07-14] MEDS ORDERED: LIDOCAINE HCL 2% 50 ML VIAL ONE (14:48)
[2017-07-14] MEDS ORDERED: VANCOMYCIN 500 MG VIAL ONE (14:48)
[2017-07-14] MEDS ORDERED: HEPARIN-NS/PF INJ 1,000 ML ONE (14:48)
[2017-07-14] MEDS ORDERED: ceFAZolin INJ 1,000 MG VIAL ONE (14:49)
[2017-07-14] MEDS ORDERED: SODIUM CHLOR 0.9% 250 ML INJ 250 ML ONE (14:49)
[2017-07-14] MEDS ORDERED: MAGNESIUM SULFATE 1 GM PREMIX 100 ML IV SCH (15:00)
[2017-07-14] MEDS ORDERED: GENTAMICIN SULFATE 80 MG/2 ML VIAL ONE (15:11)
--- NOTE | 2017-07-14 15:53 | CATHPROC ---
[facility] HIS Report Study Information Study Number Admission Scheduled Start Study Start [id number] Jul 11 2017 11:27AM 07/14/2017 Jul 14 2017 2:37PM [facility] Cardiac Pacer/ICD Admit Source Facility Department Other [facility] Physician and Clinical Staff Initial Gerald Rowland Residential Electrician Estrada Samuels,RT(R) Other Anesthesia, CAN CARRIER Recorder Veda Hubbard,JAMAL Scrub Nehal Sims RCIS Procedures Performed Procedure Location (Site) Ablation Procedure RF Ablation AV NODE Equipment Time Board Machine Set Up Operator Description Size Mfg Part Number Used/Scraped [employer]/ EP CATHETER, FR8 BLAZER II 10MM [id number] 15:44 FR8 Used PACER LRG XP *[id number] 15:06 [employer] LEADWIRE, DEFIBRILLATION PAD 2001M-PC Used [id number] 15:06 [facility] INDUSTRIES PACK, CCL CUSTOM * Used *[id number] 15:06 [facility] PACER [place], LIMB * 2530 *[id number] Used PROBE COVER, STERILE [id number] 15:26 [employer] MEDICAL * Used ULTRASOUND W/ GEL *[id number] 15:06 [facility] BLANKET,WARM AIR CCL * Used *[id number] 15:07 [employer] MED[employer] CATHETER, JSN, QUAD FR 5 Used *[id number] 15:07 [employer] MEDICAL CATHETER, JSN, QUAD FR 5 Used *[id number] 15:07 [employer] MEDICAL CATHETER, JSN, QUAD FR 5 Used *[id number] 15:06 [employer] MEDICAL ELECTRODE KIT, HOMER X SURFACE * [id number] [employer] MED[employer] SHEATH, EPS, FR7 FAST CATH FR 7 [id number] Used 15:07 [employer] MED[employer] SHEATH, EPS, FR7 FAST CATH FR [address] [id number] Used 15:07 [employer] MED[employer] SHEATH, EPS, FR7 FAST CATH FR 7 [id number] Used [id number] 15:07 [employer] MED[employer] SHEATH, EPS, FR8 FAST CATH FR 8 Used *[id number] [facility] PAD, ELECTROSURGICAL 15:06 * [id number] *[id number] Used SURGICAL GROUNDING (BLUE) [facility] PAD, ELECTROSURGICAL 15:06 * [id number] *[id number] Used SURGICAL GROUNDING (BLUE) History: Allergies Allergy Reaction No Known Allergies History: Risk Factors Dyslipidemia Yes Prior CABG Yes Diabetes Yes Labs Hgb (g/dl) Hct (%) RBC (MIL/MM3) WBC (l/cumm) Platelets (thousands) 11.60-17.00 35.00-51.00 4.00-5.90 4.00-11.00 150.00-450.00 11.0 33 6.7 9.3 137 Glucose (mg/dl) BUN (mg/dl) Creatinine (mg/dl) BUN:Creatinine (1:x) 74.00-106.00 7.00-18.00 0.50-1.30 10.00-20.00 160 10 0.7 14.3 Na (meq/l) K (meq/l) 136.00-145.00 3.50-5.10 140 3.6 INR (PTT:PT) 0.90-1.10 1.4 Medication Medication Total Dose (Bolus/Oral) Medication Total Dosage/Unit 1% XYLOCAINE 20 mL Medications (Bolus/Oral) Medication Time Given Dosage/Unit Administered By Reason 1% XYLOCAINE 07/14/2017 3:21:44 PM 20 mL Gerald Gonzalez 20 mL 1% XYLOCAINE given in lab by Gerald Gonzalez in Right Groin via Subcutaneous. Initial Case Assessment Cardiovascular HR Rhythm NIBP Chest Pain 95 af 138/81 0 Edema Present Skin color Skin None Normal Warm Dry Circulatory - Right Pulses Dorsalis Pedis Radial 1 2 Scale (0,1,2,3,4,d) Circulatory - Left Pulses Dorsalis Pedis Radial 1 2 Scale (0,1,2,3,4,d) Circulatory - Lower Extremities Color Lower Right Color Lower Left Normal Normal Neurological State Oriented to time-place- Alert Moves all extremities person Respiration - General Respiration Rate SpO2 (%) (B/min) 18 90 Chronological Log Time Study Chronological Log 14:36:40 Patient arrived via Bed. 14:36:41 Patient Name, D.O.B, / Armband Verified By R.N. 14:36:42 Consent signed by the physician and the patient and verified by the [facility] staff. 14:36:43 Pre-op and post- op instructions given; patient acknowledges understanding of instructions. 14:36:44 Verbal Stimulation=2 Physical Stimulation=2 Airway=2 Respiration=2 TOTAL=8. (0=absent, 1=li mited, 2=present) 14:38:39 Anesthesia at bedside. Assumes care of patient. Tha 14:38:41 Patient has been NPO for More than 6Hrs. 14:38:42 Skin Breakdown- generalized bruising 14:38:44 Patient Warmer Placed on the Table. 14:38:47 Disposable Defibrillator Pads Placed On Patient. 14:38:48 Henry Prominences Protected 14:38:50 A # 20 IV was noted in the Antecubital (right). Grade = 0 0.9ns kvo 14:38:51 A # 20 IV was noted in the Forearm (left). Grade = 0 0.9ns kvo 14:38:53 History and physical on the chart. Assessment: Initial Case, HR=95 BPM, Rhythm=af, AGCW=460/81 mmhg, Chest Pain=0, Edema=None, Col or=Normal, Skin = Warm, Dry Right Pulses: Christopher Ped=1, Radial=2 Left Pulses: Christopher Ped=1, Radial=2 15:01:41 Lower Right Extremities: Color=Normal Lower Left Extremities: Color=Normal Neurological: State=Alert, Ox3, MORLEY Respiration: Resp=18 B/min, SpO2=90 % 15:04:21 Table restraints applied according to hospital policy 15:04:28 Bilateral groins prepped with 2% chlorhexidine, and draped after a 3 minute waiting time. 15:11:53 MD paged 15:15:02 MD arrived. 15:15:22 Reference ECG taken Time Out #2 - Consents verified, patient in correct position, all results are labled and displa yed, safety precautions 15:21:24 taken, antibiotics administered. Time out concurred by MD, individual staff and CAN CARRIER in procedu re Time Out. Correct patient, procedure, procedure equipment, site and side verified with physicia n present. Time 15:21:32 concurred by MD, individual staff and CAN CARRIER. 15:21:40 Case Start 15:21:44 20 mL 1% XYLOCAINE given in lab by Gerald Gonzalez in Right Groin via Subcutaneous. 15:24:00 Vascular access was obtained in the Fem Vein (right). Using Ultrasound 15:24:15 Vascular access was obtained in the Fem Vein (right). 15:30:00 A SHEATH, EPS, FR7 FAST CATH FR 7 was advanced into the Fem Vein (right) using the Modified Seldinger technique. 15:30:12 A SHEATH, EPS, FR8 FAST CATH FR 8 was advanced into the Fem Vein (right) using the Modified Seldinger technique. A CATHETER, JSN, QUAD FR 5 was advanced vis Fem Vein (right) and placed in the RVA. Placement w as visually 15:30:50 confirmed under fluoroscopy. A CATHETER, FR8 BLAZER II 10MM LRG XP FR8 was advanced vis Fem Vein (right) and placed in the A V NODE. 15:34:33 Placement was visually confirmed under fluoroscopy. 15:36:14 EPS in progress. 15:44:16 RF Ablation of the AV NODE with a CATHETER, FR8 BLAZER II 10MM LRG XP FR8. 15:50:18 Ablation catheter out. Pacing via RV Quad at 60bpm. 15:50:52 Ablation procedure performed: AVN. 15:50:59 EP Procedure was performed. 15:51:38 Sheath(s) left in place, secured, 0.9ns kvo connected and will be removed in Holding Area 15:51:56 No case complications noted. 15:52:00 Cine recording checked. 15:52:30 Case End 15:52:46 NOTE: This patient is undergoing an additional procedure while still in the Cardiac Cath L ab. End Study - Contrast Media Used In Study Contrast Total Opened (mL) Total Used (mL) Total Wasted (mL) Unspecified 0 0 0 End Study - Maximum Contrast Load Max Contrast Load (mL) 500.0 End Study - Radiation Exposure Fluoro Time (minutes) 4.0 End Study - Patient Disposition Complications Transferred To Interventional Outcome No [facility]her Holding successful
[2017-07-14] MEDS ORDERED: POTASSIUM PHOSPHATE INJ 21 MMOL in SODIUM CHLOR 0.9% 250 ML INJ 250 ML IV ONE (16:00)
--- NOTE | 2017-07-14 17:46 | CATHPROC ---
1.618 Technology HIS Report Study Information Study Number Admission Scheduled Start Study Start [id number] Jul 11 2017 11:27AM 07/14/2017 Jul 14 2017 3:54PM [place] Service Electrophysiology Study Admit Source Facility Department Other [facility] - Event Promotions Coordinator Physician and Clinical Staff Initial Gerald Rowland Skate Boarder Nehal Sims,KORY Other Anesthesia, TRANSFER WORKER Recorder Veda Hubbard,RN Scrub Estrada Samuels,RT(R) Procedures Performed Procedure Lead Insertion Equipment Time Rn Float Description Size Mfg Part Number Used/Scraped 15:57 [employer] MED[employer] DRAPE, [place] X-RAY 12X17 12X17 D-100 *[id number] Used INTRODUCER SET, 15:57 [employer] FR 5 [id number] *[id number] Used MICROPUNCTURE, STIFFENED INTRODUCER SET, 15:57 [employer] FR 5 [id number] *[id number] Used MICROPUNCTURE, STIFFENED [id number] 15:57 [employer] DRAPE, IOBAN 2 [id number] 26cm x 20cm Used *[id number] 15:57 [employer] SUTURE, STRIP PLUS 1/2" * Used *[id number] 15:57 MEDLINE PACER ADHESIVE, MASTISOL 2/3CC 2/3CC 0523-48 Used 15:57 MEDLINE PACER [place]IL[place], LIMB * 2530 *[id number] Used [id number] 15:57 MEDLINE PACER PACK, PACER CUSTOM * Used *[id number] 15:57 MEDLINE PACER PEN, SKIN DUAL W/ RULER * Used *[id number] 16:16 IFTTT PACER SAFE SHEATH, FR8, 13CM FR 8 [id number] Used PROBE COVER, STERILE [id number] 15:57 FlexScore * Used ULTRASOUND W/ GEL *[id number] 16:22 Needle Sponge Count 2 22 Used 16:22 Needle Sponge Count 25 1 Used 17:06 Needle Sponge Count 30 1 Used 16:39 Needle Sponge Count 35 Used 16:22 Needle Sponge Count 4 4 Used [id number] *[id number] SUTURE, 0 ETHIBOND [CT1] (CX21D), 8pk SUTURE, 2-0 VICRYL [CT1] ([id number]) SUTURE, 2-0 VICRYL [CT1] ([id number]) SUTURE, 4-0 VICRYL [PS2] ([id number]) [id number] 15:57 [employer],WARM AIR CCL * Used *[id number] LEAD, TENDRIL ACTIVE FIXATION 16:55 [employer] 52CM [id number] Used BIPOLAR 16:58 [employer] PACEMAKER, ASSURITY SSIR SSIR [id number] Used [facility] PAD, ELECTROSURGICAL 15:57 * [id number] *[id number] Used SURGICAL GROUNDING ORANGE [id number] 15:57 [employer] CHARLIE. / * Used *[id number] Equipment Model, Serial, Lot Number and Expiration Data Description Model Number Serial Number Lot Number Expiration Date LEAD, TENDRIL ACTIVE FIXATION [id number] 12-04-2017 BIPOLAR PACEMAKER, ASSURITY SSIR [id number] 11-27-2018 History: Allergies Allergy Reaction No Known Allergies Medication Medication Total Dose (Bolus/Oral) Medication Total Dosage/Unit 2% XYLOCAINE 50 mL Medications (Bolus/Oral) Medication Time Given Dosage/Unit Administered By Reason 2% XYLOCAINE 07/14/2017 4:32:00 PM 50 mL Gerald Gonzalez 50 mL 2% XYLOCAINE given by Gerald Gonzalez in Left shoulder via Subcutaneous. Medication (Drip) Medication Time Given Dosage/Unit Concentration/Unit Diluent (ml) Solution ANCEF 07/14/2017 3:52:00 PM 2 g 2 g ANCEF given by Anesthesia, TRANSFER WORKER via Peripheral IV. ANCEF 07/14/2017 3:52:50 PM 2 g 2 g ANCEF given in lab by Anesthesia, TRANSFER WORKER via Peripheral IV. Ordered by Gerald Gonzalez. Reason: As per physicians verbal order. VANCOMYCIN DRIP 07/14/2017 3:52:00 PM 1 g 1 g VANCOMYCIN DRIP given in lab by Anesthesia, TRANSFER WORKER via Peripheral IV. Ordered by Gerald Gonzalez. R guru: As per physicians verbal order. Final Case Assessment Cardiovascular HR Rhythm NIBP Chest Pain 90 vp home health 119/70 0 Edema Present Skin color Skin None Normal Warm Dry Circulatory - Right Pulses Dorsalis Pedis Radial 1 2 Scale (0,1,2,3,4,d) Circulatory - Left Pulses Dorsalis Pedis Radial 1 2 Scale (0,1,2,3,4,d) Circulatory - Lower Extremities Color Lower Right Color Lower Left Normal Normal Neurological State Oriented to time-place- Alert Moves all extremities person Respiration - General Respiration Rate SpO2 (%) (B/min) 16 94 Chronological Log Time Study Chronological Log 15:52:00 2 g ANCEF given by Anesthesia, TRANSFER WORKER via Peripheral IV. 1 g VANCOMYCIN DRIP given in lab by Anesthesia, TRANSFER WORKER via Peripheral IV. Ordered by Dash Gonzalez. Reason: As 15:52:00 per physicians verbal order. 2 g ANCEF given in lab by Anesthesia, TRANSFER WORKER via Peripheral IV. Ordered by Gerald Gonzalez. Reaso n: As per physicians 15:52:50 verbal order. 15:52:53 NOTE: This patient is undergoing an additional procedure while still in the Cardiac Cath La b. 15:53:31 Initial procedure has been completed. Beginning additional procedure. 15:54:36 Bovie ground pad applied to: right thigh 15:54:50 2% CHLORHEXIDINE GLUCONATE WASH AND NASAL SWIPE DONE PRIOR TO PROCEDURE. 15:54:56 Anesthesia remains at bedside. Assuming care of patient. 16:19:48 Left Upper Chest Prepped Times Two. First Sponge And Instrument Count Done by Estrada Samuels, RT(R). 16:21:16 Hypo's: 4, Sponges: 30, Bovie/scratch: 2 Sutures: 10, Blades: 1, Instruments: 26, Syveck Patches: 0 Time Out. Correct patient, procedure, procedure equipment, site and side verified with physicia n present. Time 16:29:00 concurred by MD, individual staff and TRANSFER WORKER. 16:29:44 Case Start 16:32:00 50 mL 2% XYLOCAINE given by Gerald Gonzalez in Left shoulder via Subcutaneous. 16:32:43 Surgical Incision Made. 16:41:03 A pocket was created at the L Upper Chest. 16:41:09 1 antibiotic sponge put into the surgical pocket. 16:43:15 Reference ECG taken 16:46:10 Wire inserted 16:47:06 A SAFE SHEATH, FR8, 13CM FR 8 was advanced into the Fem Art (right) using the Modified Seld zbigniew technique. 16:48:52 A LEAD, TENDRIL ACTIVE FIXATION BIPOLAR 52CM was inserted and positioned in the RV. 16:54:50 Lead placement verified under fluoroscopy 16:54:59 Quad pacing off 16:55:11 The RV lead impedance and threshold being tested. 17:01:00 Antibiotic sponge removed from the surgical pocket. 17:01:30 Pocket flushed with antibiotic solution 17:02:20 A PACEMAKER, ASSURITY SSIR SSIR was connected and placed in the pocket. Second Sponge And Instrument Count Done by Estrada Samuels RT(R). 17:05:07 Hypo's: 4, Sponges: 35, Bovie/scratch: 2 Sutures: 10, Blades: 1, Instruments: , Syveck Patches: ~SYVECK PATCH~ 17:13:46 Implant Procedure was performed. 17:13:58 A PPM Implant . (Single) 17:14:39 RV Quad Catheter was removed under flouro 17:20:36 The pocket was closed. Final Sponge And Instrument Count Done by Estrada Samuels RT(R). 17:24:55 Hypo's: 4, Sponges: 30, Bovie/scratch: 2 Sutures: 10, Blades: 1, Instruments: 26, Syveck Patches: 0 17:27:20 Steri-strips and a sterile dressing applied to site. 17:29:00 Right groin Sheaths removed; pressure applied to access site by DC. 17:42:56 CICU called. Spoke to Naima 17:43:13 Bedside Report will be given. 17:43:21 Case End 17:43:57 Implantable Device card placed in patient's chart. Assessment: Final Case, HR=90 BPM, Rhythm=vp home health, ZADO=847/70 mmhg, Chest Pain=0, Edema=None, Color =Normal, Skin = Warm, Dry Right Pulses: Christopher Ped=1, Radial=2 Left Pulses: Christopher Ped=1, Radial=2 17:44:20 Lower Right Extremities: Color=Normal Lower Left Extremities: Color=Normal Neurological: State=Alert, Ox3, MORLEY Respiration: Resp=16 B/min, SpO2=94 % 17:47:00 Sterile dressing applied to site 17:50:00 A sling was placed on the affected arm. 17:50:46 Patient moved to stretcher 17:51:51 Defibrillator and ground pads removed. Skin intact. End Study - Contrast Media Used In Study Contrast Total Opened (mL) Total Used (mL) Total Wasted (mL) Unspecified 0 0 0 End Study - Radiation Exposure Fluoro Time (minutes) 1.9 End Study - Sheaths Sheaths Pulled By Sheath Hold Time (min) Nehal Sims 15 End Study - Patient Disposition Complications Transferred To Interventional Outcome No Telemetry Bed successful
--- NOTE | 2017-07-14 18:31 | MB ---
cc: GERALD MAYFIELD DATE OF CONSULTATION 07/14/2017 Electrophysiology consultation HISTORY An 82-year-old white male with a history of pulmonary embolism, coronary artery disease, coronary artery bypass and chronic atrial fibrillation. He had multiple episodes of syncope which started on 07/09. He was seen in the emergency room on 07/10. He got up to go to the bathroom in the morning and he started to develop dizziness and unsteadiness and his [id number] could catch him before he fell. He was unconscious. There was no seizure like activity. No loss of bowel or bladder control. He did not want to come to the emergency room. He another episode at 4 o'clock in the afternoon and he was again caught before he fell on the ground. He had several episodes when he was sitting in his bed. The patient was dizzy and lightheaded. He was brought to the emergency room. He was found to have atrial fibrillation with rapid ventricular response with severe hypotension associated with rate control. He is now referred for AV kimberley ablation and permanent pacemaker placement. PAST MEDICAL HISTORY Positive for: 1. Pulmonary embolism. 2. Brain hemorrhage in April 2015. 3. Rectal cancer status post chemotherapy and radiation. 4. Coronary artery disease. 5. Coronary bypass in 2001. 6. BPH. 7. Type 2 diabetes mellitus. 8. Dyslipidemia. 9. Craniectomy in 2014. 10. Bypass in 2001. 11. Right carotid endarterectomy. 13. IVC filter placement. MEDICATIONS Include: 1. Aspirin. 2. Allopurinol. 3. Carbidopa-levodopa. 4. Flomax. 5. Furosemide. 6. Metformin. 7. Januvia. 8. Levetiracetam. 9. Lisinopril. 10. Lovastatin. 11. Lopressor. 12. Niaspan. 13. Warfarin 2.5 mg a day. 14. Digoxin. 15. Levemir. 16. . ALLERGIES None. SOCIAL HISTORY The patient does not smoke and he does not drink alcohol. He works as a reza. He is from [place]. He is and accompanied by his . FAMILY HISTORY Negative for heart disease. REVIEW OF SYSTEMS Otherwise negative. PHYSICAL EXAMINATION VITAL SIGNS: Blood pressure 92/53, pulse 122 and irregular. HEENT: Negative. 2+ carotid upstrokes. No bruits. LUNGS: Irregularly irregular with no murmur, gallop or rub. ABDOMEN: Soft. No bruits. EXTREMITIES: Without edema. 2+ distal pulses. NEUROLOGIC: Exam is grossly nonfocal. LABORATORY DATA EKG was reviewed and showed atrial fibrillation / flutter, indeterminate axis, right bundle-branch block. Hemoglobin 11.5. Potassium 3.6, creatinine 0.7. Troponin negative times three. IMAGING Echocardiogram showed preserved left ventricular systolic function with an ejection fraction of 55-60% with no wall motion abnormalities. Left atrial enlargement, [id number] mitral regurgitation, mild tricuspid regurgitation and pulmonary artery pressure of 40 mmHg. DIAGNOSES 1. Syncope. 2. Atrial fibrillation / flutter with rapid ventricle response. 3. Hypotension. 4. Coronary artery disease with a history of coronary bypass. 5. Diabetes mellitus. 6. Dyslipidemia. 7. Parkinson disease. 8. History of pulmonary embolism and IVC filter placement disorder. DISPOSITION Mr. Price is found to have atrial fibrillation / flutter with rapid ventricular response. Any attempts for rate control resulted in severe hypotension. The patient will undergo electrophysiology study and radiofrequency ablation of his AV node followed by a single chamber permanent pacemaker placement. The patient and his understand the risks and benefits and wish to proceed. Gerald Mayfield MD OParis/KK /3:59 PM /6:10 PM
--- NOTE | 2017-07-14 19:44 | RADRPT ---
EXAM DATE/TIME: 07/14/2017 19:05 [facility] COMPARISON: CHEST SINGLE AP, July 10, 2017, 16:39. INDICATIONS : Post pacemaker placement. MEDICAL HISTORY : Hypertension. Benign prostatic hyperplasia, (BPH) Left hand tremor. SURGICAL HISTORY : Tonsillectomy. CABG. ENCOUNTER: Initial ACUITY: 1 day PAIN SCORE: Non-responsive. LOCATION: Bilateral chest FINDINGS: A single portable frontal view the chest shows interval placement of a single lead pacing device on t he left. The lead terminates in the region of the right ventricle. No pneumothorax. Right-sided Port- A-Cath. Heart is at the upper limits of normal in terms of size. Pulmonary vascular engorgement noted . No infiltrates or effusions. Median sternotomy wires. CONCLUSION: 1. Left-sided pacing device in good position without pneumothorax. 2. Pulmonary vascular engorgement. Wagner Martinez Jr., MD on July 14, 2017 at 19:40 Board Certified Radiologist. This report was verified electronically.
[2017-07-14] MEDS ORDERED: GLUCAGON 1 MG/ML VIAL OTHER PRN (20:00)
[2017-07-14] MEDS ORDERED: DEXTROSE 50% IN WATER 50 ML VIAL(D50) IV PUSH PRN (20:00)
[2017-07-14] MEDS: INSULIN ASPART SUPPLEMENTAL SCALE SQ SCH (21:00)
[2017-07-14] MEDS: NIACIN 500 MG EXTENDED RELEASE TAB PO SCH (22:11)
[2017-07-14] MEDS: cefTRIAXone INJ 1,000 MG in SODIUM CHLORIDE 0.9% INJ 100 ML IV SCH (22:12)
[2017-07-14] MEDS: TAMSULOSIN HCL 0.4 MG CAP PO SCH (22:12)
[2017-07-14] MEDS: PRAVASTATIN SOD 20 MG TAB PO SCH (22:12)
[2017-07-14] MEDS: MAGNESIUM SULFATE 1 GM PREMIX 100 ML IV SCH ×2 (22:14→23:33)
[2017-07-15] VITALS (19 sets, daily range): BP systolic 106–144; BP diastolic 56–84; PULSE 51–96; RESP 14–18; TEMP 97.1–98.6; O2SAT 91–99
[2017-07-15] MEDS ORDERED: VANCOMYCIN INJ 1,000 MG in SODIUM CHLOR 0.9% 250 ML INJ 250 ML IV ONE (04:00)
[2017-07-15] MEDS: CARBIDOPA/LEVODOPA 25 MG/100 MG TAB PO SCH ×3 (06:07→22:17)
[2017-07-15 06:41] LABS: AUTOMATED NEUTROPHIL # 9.5 TH/MM3 (1.8-7.7); BASOPHIL % 0.1 % (0.0-2.0); EOSINOPHIL % 0.4 % (0.0-4.0); HEMATOCRIT 31.9 % (39.0-51.0); HEMOGLOBIN 10.5 GM/DL (13.0-17.0); INTERNATIONAL NORMALIZED RATIO 1.2 RATIO; LYMPH % 6.5 % (9.0-44.0); LYMPHOCYTE # 0.7 TH/MM3 (1.0-4.8); MEAN CORPUSCULAR HEMOGLOBIN 30.3 PG (27.0-34.0); MEAN PLATELET VOLUME 7.4 FL (7.0-11.0); MONO % 7.7 % (0.0-8.0); MONOCYTE # 0.9 TH/MM3 (0-0.9); NEUT % 85.3 % (16.0-70.0); PLATELET COUNT 138 TH/MM3 (150-450); RED BLOOD COUNT 3.47 MIL/MM3 (4.50-5.90); RED CELL DISTRIBUTION WIDTH 16.2 % (11.6-17.2); WHITE BLOOD COUNT 11.1 TH/MM3 (4.0-11.0)
[2017-07-15 07:02] LABS: BICARBONATE 18.9 MEQ/L (21.0-32.0); CALCIUM 7.4 MG/DL (8.5-10.1); CREATININE 0.67 MG/DL (0.60-1.30); PHOSPHORUS 1.8 MG/DL (2.5-4.9)
[2017-07-15 07:20] LABS: CALCIUM-PROTEIN CORRECTED 7.8 MG/DL (8.5-10.1); TOTAL PROTEIN 6.4 GM/DL (6.4-8.2)
[2017-07-15] MEDS: ASPIRIN 81 MG CHEW TAB CHEW SCH (09:00)
--- NOTE | 2017-07-15 09:22 | HHI.PR ---
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 07/14: stable seen in his bedroom, in the presence of his and Daughter, will have procedure this afternoon by Doctor Gerald Goznalez 07/15: Seen in his bedroom his present, discussed with nurse Miss Quezada, Phosphorus 1.8 given 21 mmol not yet cleared by Cardiology for discharge no nausea, vomit or diarrhea. Objective Vital Signs Date Time Temp Pulse Resp B/P (MAP) Pulse Ox O2 Delivery O2 Flow Rate FiO2 07/15/17 08:00 79 07/15/17 07:00 Room Air 2.00 07/15/17 07:00 97.7 90 14 144/82 (102) 91 07/15/17 07:00 90 07/15/17 06:00 91 07/15/17 05:00 90 07/15/17 04:00 98.5 89 16 140/76 (97) 96 07/15/17 04:00 89 07/15/17 03:00 91 07/15/17 02:00 90 07/15/17 01:00 89 07/15/17 00:00 98.6 90 16 131/76 (94) 91 07/15/17 00:00 91 Room Air 07/15/17 00:00 91 07/14/17 23:00 90 07/14/17 22:00 90 07/14/17 21:00 90 07/14/17 20:00 98.0 93 16 124/74 (91) 94 07/14/17 20:00 91 07/14/17 20:00 94 Room Air 07/14/17 19:00 90 07/14/17 18:54 91 07/14/17 18:47 98.4 91 18 126/78 (94) 92 07/14/17 14:00 87 07/14/17 13:00 109 07/14/17 12:00 103 07/14/17 11:01 98.4 122 18 92/53 (66) 96 07/14/17 11:00 134 07/14/17 10:00 142 I/O 07/14/17 07/14/17 07/14/17 07/15/17 07/15/17 07/15/17 07:00 15:00 23:00 07:00 15:00 23:00 Intake Total 1580 ml 240 ml 1862 ml Output Total 800 ml 600 ml 600 ml Balance 780 ml -360 ml 1262 ml Intake Oral 640 ml 240 ml 240 ml IV Total 940 ml 1622 ml Output Urine Total 800 ml 600 ml 600 ml # Voids 3 # Bowel Movements 0 1 0 Result Diagram: 07/15/17 0555 07/15/17 0555 Imaging Last Impressions Chest X-Ray 07/14/17 0000 Signed Impressions: Service Date/Time: Friday, July 14, 2017 19:05 - CONCLUSION: 1. Left- sided pacing device in good position without pneumothorax. 2. Pulmonary vascular engorgement. Wagner Martinez Jr., MD Ribs X-Ray 07/11/17 0000 Signed Impressions: Service Date/Time: Tuesday, July 11, 2017 10:45 - CONCLUSION: Negative for rib fracture. Adalberto Ball MD FACR Abdomen/Pelvis CT 07/11/17 0000 Signed Impressions: Service Date/Time: Tuesday, July 11, 2017 15:26 - CONCLUSION: 1. Diffuse irregular bladder wall thickening particularly near the dome with irregular sacculations and associated mild bilateral hydroureteronephrosis. Findings likely reflect bladder outlet obstruction with mild post obstructive uropathy. However, differential consideration includes bladder malignancy. 2. Nonspecific heterogeneous and heterogeneously prominent prostate gland. 3. Exophytic indeterminate cyst arising from the superior pole of right kidney measuring up to 2.9 cm. Statistically, this reflects a complex hemorrhagic or proteinaceous cyst. Followup examination may be performed with ultrasound exam in 6 months to determine stability as clinically warranted. 4. Prominent coronary artery calcifications. Rafael Lazar MD Head CT 07/10/17 1609 Signed Impressions: Service Date/Time: June 17:05 - CONCLUSION: Stable noncontrast head CT with no evidence of fracture or hemorrhage. Yaw Waggoner MD Carotid Artery Ultrasound 07/10/17 0000 Signed Impressions: Service Date/Time: June 21:32 - CONCLUSION: Bilateral carotid atherosclerosis, mild to moderate and fairly focal on the right, moderate and longer segment on the left. Please see above. No hemodynamically significant stenosis demonstrated on either side. Macario Hollis MD Procedures Successful placement of [employer] Anthony single chamber MRI-compatible pacemaker. Other Results Laboratory Tests Test 07/10/17 20:40 07/11/17 03:48 07/12/17 19:44 07/15/17 05:55 Urine Color YELLOW Urine Turbidity CLOUDY Urine pH 5.5 Urine Specific [place] 1.020 Urine Protein 30 mg/dL Urine Glucose (UA) NEG mg/dL Urine Ketones TRACE mg/dL Urine Occult Blood SMALL Urine Nitrite NEG Urine Bilirubin NEG Urine Urobilinogen 2.0 MG/DL Urine Leukocyte Esterase LARGE Urine RBC 89 /hpf Urine WBC /hpf Urine Amorphous Sediment RARE Urine Bacteria MANY /hpf Urine Hyaline Casts 16 /lpf Microscopic Urinalysis Comment CATH-CULTURE IND Total Creatine Kinase 72 U/L Troponin I 0.03 NG/ML Digoxin Level 1.2 NG/ML White Blood Count 11.1 TH/MM3 Red Blood Count 3.47 MIL/MM3 Hemoglobin 10.5 GM/DL Hematocrit 31.9 % Mean Corpuscular Volume 92.0 FL Mean Corpuscular Hemoglobin 30.3 PG Mean Corpuscular Hemoglobin Concent 33.0 % Red Cell Distribution Width 16.2 % Platelet Count 138 TH/MM3 Mean Platelet Volume 7.4 FL Neutrophils (%) (Auto) 85.3 % Lymphocytes (%) (Auto) 6.5 % Monocytes (%) (Auto) 7.7 % Eosinophils (%) (Auto) 0.4 % Basophils (%) (Auto) 0.1 % Neutrophils # (Auto) 9.5 TH/MM3 Lymphocytes # (Auto) 0.7 TH/MM3 Monocytes # (Auto) 0.9 TH/MM3 Eosinophils # (Auto) 0.0 TH/MM3 Basophils # (Auto) 0.0 TH/MM3 CBC Comment DIFF FINAL Differential Comment Prothrombin Time 12.0 SEC Prothromb Time International Ratio 1.2 RATIO Blood Urea Nitrogen 9 MG/DL Creatinine 0.67 MG/DL Random Glucose 168 MG/DL Total Protein 6.4 GM/DL Calcium Level 7.4 MG/DL Phosphorus Level 1.8 MG/DL Magnesium Level 2.0 MG/DL Sodium Level 140 MEQ/L Potassium Level 3.7 MEQ/L Chloride Level 109 MEQ/L Carbon Dioxide Level 18.9 MEQ/L Anion Gap 12 MEQ/L Estimat Glomerular Filtration Rate 114 ML/MIN Protein Corrected Calcium 7.8 MG/DL Objective Remarks GENERAL: No acute distress. SKIN: No rashes. Cool and dry. HEAD: Atraumatic. Normocephalic. EYES: No scleral icterus. Left lower lid ectropion. ENT: Nose without bleeding, purulent drainage. The patient is moderately hearing-impaired. NECK: Trachea midline. No JVD.. CARDIOVASCULAR: Regular rate and rhythm without murmurs, gallops, or rubs. RESPIRATORY: Clear to auscultation. Breath sounds equal bilaterally. No wheezes , rales, or rhonchi. GASTROINTESTINAL: Abdomen soft, non-tender, nondistended. No guarding. MUSCULOSKELETAL: Extremities without clubbing, cyanosis, or edema. No calf tenderness. NEUROLOGICAL: Awake and alert. Motor and sensory grossly within normal limits. Normal speech. Medications and IVs Current Medications Medications (Trade) Dose Ordered Sig/Kimberley Route Start Time Stop Time Status Last Admin (NS Flush) 2 ml UNSCH PRN IV FLUSH 07/10/17 20:00 (NS Flush) 2 ml BID IV FLUSH 07/10/17 21:00 07/14/17 22:11 (Narcan Inj) 0.4 mg UNSCH PRN IV PUSH 07/10/17 20:00 (Zyloprim) 100 mg DAILY PO 07/11/17 09:00 07/14/17 09:59 (Aspirin Chew) 81 mg DAILY CHEW 07/11/17 09:00 07/14/17 09:59 (Keppra) 500 mg BID PO 07/10/17 21:45 07/14/17 22:11 (Slo-Niacin) 1,000 mg HS PO 07/10/17 21:45 07/14/17 22:11 (Proscar) 5 mg DAILY PO 07/11/17 09:00 07/14/17 09:58 (Flomax) 0.8 mg HS PO 07/11/17 09:00 07/14/17 22:12 (Sinemet 25-100 Mg) 1 tab Q8HR PO 07/11/17 06:00 07/15/17 06:07 (Tylenol) 650 mg Q4H PRN PO 07/11/17 06:30 07/14/17 06:38 (Lanoxin) 0.25 mg DAILY PO 07/12/17 09:00 07/14/17 09:59 (Pravachol) 20 mg HS PO 07/12/17 21:00 07/14/17 22:12 Ceftriaxone Sodium 1000 mg/ Sodium Chloride 100 ml @ 200 mls/hr Q24H IV 07/11/17 21:00 07/14/17 22:12 Sodium Chloride 1,000 ml @ 84 mls/hr [id number] IV 07/12/17 10:00 07/14/17 22:14 Cefazolin Sodium/ Dextrose 50 ml @ 100 mls/hr Q8H IV 07/15/17 00:00 07/15/17 16:29 07/15/17 00:00 (D50w (Vial) Inj) 50 ml UNSCH PRN IV PUSH 07/14/17 20:00 (Glucagon Inj) 1 mg UNSCH PRN OTHER 07/14/17 20:00 (NovoLOG SUPPLEMENTAL SCALE) 1 ACHS SLIDING SCALE SQ 07/14/17 21:00 07/14/17 21:00 A/P Assessment and Plan 1. Hypotension on hold Metoprolol, Lisinopril, And Lasix 2. 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 INR 1.4 today. 3. Parkinson's Disease to continue Home medicines 4. History of Rectal Cancer status post chemotherapy and radiation therapy 5. CAD with CABG in 2001. 6. Acute on chronic renal insufficiency- improved 7. UTI on Ceftriaxone Urine culture Proteus Mirabilis on Ceftriaxone 8. left sided Chest Wall pain after a fall with negative chest for ribs. 9. DM II continue sliding scale better management 10. Hypophosphatemia replaced. DVT prophylaxis SCDs. Discussed with patient, his discussed with nurse Miss Quezada Discharge Planning Once Cleared by urban gardening specialist. Robinson Toscano MD Jul 15, 2017 09:22
[2017-07-15] MEDS: SODIUM CHLOR 0.9% 1000 ML INJ 1,000 ML IV SCH ×2 (09:30→21:25)
[2017-07-15] MEDS: FINASTERIDE 5 MG TAB PO SCH (10:01)
[2017-07-15] MEDS: levETIRAcetam 500 MG TAB PO SCH ×2 (10:01→22:17)
[2017-07-15] MEDS: DIGOXIN 0.25 MG TAB PO SCH (10:01)
[2017-07-15] MEDS: ALLOPURINOL 100 MG TAB PO SCH (10:01)
[2017-07-15] MEDS: SODIUM CHLORIDE 0.9% FLUSH 10 ML FLUSH IV FLUSH SCH ×2 (10:02→22:17)
[2017-07-15] MEDS: ACETAMINOPHEN 325 MG TAB PO PRN ×2 (10:05→22:17)
[2017-07-15] MEDS: ceFAZolin 2 GM PREMIX 50 ML IV SCH ×3 (10:06→16:00)
[2017-07-15] MEDS: INSULIN ASPART SUPPLEMENTAL SCALE SQ SCH ×4 (10:07→21:00)
[2017-07-15] MEDS ORDERED: POTASSIUM PHOSPHATE INJ 21 MMOL in SODIUM CHLOR 0.9% 250 ML INJ 250 ML IV ONE (11:00)
--- NOTE | 2017-07-15 14:27 | MR ---
cc: GERALD GONZALEZ DATE 07/14/2017 INDICATION Atrial fibrillation with rapid ventricular response, hypotension, status post AV kimberley ablation, complete heart block. PROCEDURE PERFORMED Placement of [employer] single chamber MRI-compatible pacemaker. EQUIPMENT USED [employer] MRI, model [id number] single chamber pacemaker, serial number [id number]. Right ventricle lead is a [employer] Model [id number], screw-in ventricular lead, serial number [id number]. LEAD manhole builder impedance of 130 ohms, unstable. Pacing threshold 1.0 volts at 0.4 milliseconds. Pacing at 10 volts, no diaphragmatic stimulation. PARAMETERS Mode VVIR, lower rate 90, upper rate 120. DIAGNOSIS Successful placement of [employer] single chamber MRI-compatible pacemaker. DISPOSITION Mr. Price will be monitored on telemetry after this procedure. He will be paced at the lower rate of 90 beats per minute. He will be seen for a wound check and chronic device reprogramming in our office within 2 weeks. His low rate will be then reprogrammed to the final parameters. He will follow up with his physicians in [place] after discharge. Gerald Gonzalez MD [facility]/SSB /5:17 PM /9:57 AM
--- NOTE | 2017-07-15 14:27 | MR ---
cc: ERNESTINA MAYFIELD DATE 07/14/2017 PROCEDURE PERFORMED Electrophysiology study and radiofrequency ablation. INDICATION 1. Syncope, atrial fibrillation/flutter with rapid ventricular response. 2. Hypotension 3. Tachycardia despite medical therapy resulting in hypotension. PROCEDURE PERFORMED 1. Comprehensive electrophysiology study with right atrial ventricle pacing and sensing. 2. 3-D mapping. 3. AV kimberley ablation MEDICATIONS Sedation administered by anesthesia. COMPLICATIONS None BLOOD LOSS Less than 10 cc. EQUIPMENT USED Quadripolar catheter and Blazer II 10-mm ablation catheter. RESULTS 1. Baseline EKG atrial fibrillation/flutter with rapid ventricular response, indeterminate axis, right bundle-branch block. 2. Baseline intervals, QRS 126, QT 400, QTC 380. 3. Right ventricle programmed stimulation. Right ventricular programmed stimulation was performed at baseline. RV/RP: 240/270/180 500/250/180 400/250/180 600/270/220/180 500/250/220/190 400/250/220/190 4. Arrhythmias induced, none. 5. The patient was found to be in atrial fibrillation/flutter with a rapid ventricular response. 6. Radiofrequency ablation. 7. AV node and His bundle was mapped and radiofrequency ablation was performed at the atrial side of the AV kimberley junction. The 3-D mapping system was used. Ablation at the Second site resulted in complete heart block with slow ventricular response. DIAGNOSIS 1. No inducible ventricular tachycardia. 2. Atrial fibrillation/flutter with rapid ventricular response. 3. Successful AV kimberley ablation. DISPOSITION Mr. Price will undergo placement of single chamber permanent pacemaker. MD ALBERTA Dye/LIANNE /4:07 PM /9:42 AM
--- NOTE | 2017-07-15 18:02 | PD.CARD.PN ---
Subjective Subjective Remarks No CP or SOB, pacemaker interrogation with nl fx Objective Medications Current Medications Medications (Trade) Dose Ordered Sig/Kimberley Route Start Time Stop Time Status Last Admin (NS Flush) 2 ml UNSCH PRN IV FLUSH 07/10/17 20:00 (NS Flush) 2 ml BID IV FLUSH 07/10/17 21:00 07/15/17 10:02 (Narcan Inj) 0.4 mg UNSCH PRN IV PUSH 07/10/17 20:00 (Zyloprim) 100 mg DAILY PO 07/11/17 09:00 07/15/17 10:01 (Aspirin Chew) 81 mg DAILY CHEW 07/11/17 09:00 07/15/17 09:00 (Keppra) 500 mg BID PO 07/10/17 21:45 07/15/17 10:01 (Slo-Niacin) 1,000 mg HS PO 07/10/17 21:45 07/14/17 22:11 (Proscar) 5 mg DAILY PO 07/11/17 09:00 07/15/17 10:01 (Flomax) 0.8 mg HS PO 07/11/17 09:00 07/14/17 22:12 (Sinemet 25-100 Mg) 1 tab Q8HR PO 07/11/17 06:00 07/15/17 14:00 (Tylenol) 650 mg Q4H PRN PO 07/11/17 06:30 07/15/17 10:05 (Lanoxin) 0.25 mg DAILY PO 07/12/17 09:00 07/15/17 10:01 (Pravachol) 20 mg HS PO 07/12/17 21:00 07/14/17 22:12 Ceftriaxone Sodium 1000 mg/ Sodium Chloride 100 ml @ 200 mls/hr Q24H IV 07/11/17 21:00 07/14/17 22:12 Sodium Chloride 1,000 ml @ 84 mls/hr [id number] IV 07/12/17 10:00 07/15/17 09:30 (D50w (Vial) Inj) 50 ml UNSCH PRN IV PUSH 07/14/17 20:00 (Glucagon Inj) 1 mg UNSCH PRN OTHER 07/14/17 20:00 (NovoLOG SUPPLEMENTAL SCALE) 1 ACHS SLIDING SCALE SQ 07/14/17 21:00 07/15/17 12:56 Vital Signs / I&O Vital Signs Date Time Temp Pulse Resp B/P (MAP) Pulse Ox O2 Delivery O2 Flow Rate FiO2 07/15/17 17:00 79 07/15/17 16:05 78 07/15/17 15:00 77 07/15/17 15:00 97.1 77 18 106/77 (87) 96 07/15/17 14:00 77 07/15/17 12:00 51 14 139/56 (83) 99 07/15/17 12:00 51 07/15/17 11:00 89 07/15/17 11:00 89 07/15/17 08:00 79 07/15/17 07:00 Room Air 2.00 07/15/17 07:00 97.7 90 14 144/82 (102) 91 07/15/17 07:00 90 07/15/17 06:00 91 07/15/17 05:00 90 07/15/17 04:00 98.5 89 16 140/76 (97) 96 07/15/17 04:00 89 07/15/17 03:00 91 07/15/17 02:00 90 07/15/17 01:00 89 07/15/17 00:00 98.6 90 16 131/76 (94) 91 07/15/17 00:00 91 Room Air 07/15/17 00:00 91 07/14/17 23:00 90 07/14/17 22:00 90 07/14/17 21:00 90 07/14/17 20:00 98.0 93 16 124/74 (91) 94 07/14/17 20:00 91 07/14/17 20:00 94 Room Air 07/14/17 19:00 90 07/14/17 18:54 91 07/14/17 18:47 98.4 91 18 126/78 (94) 92 I/O 07/14/17 07/14/17 07/14/17 07/15/17 07/15/17 07/15/17 07:00 15:00 23:00 07:00 15:00 23:00 Intake Total 1580 ml 240 ml 1862 ml Output Total 800 ml 600 ml 600 ml Balance 780 ml -360 ml 1262 ml Intake Oral 640 ml 240 ml 240 ml IV Total 940 ml 1622 ml Output Urine Total 800 ml 600 ml 600 ml # Voids 3 # Bowel Movements 0 1 0 Physical Exam GENERAL: In NAD SKIN: Warm and dry. HEAD: Normocephalic. EYES: No scleral icterus. No injection or drainage. NECK: Supple, trachea midline. No JVD or lymphadenopathy. CARDIOVASCULAR: Regular rate and rhythm without murmurs, gallops, or rubs. RESPIRATORY: Breath sounds equal bilaterally. No accessory muscle use. GASTROINTESTINAL: Abdomen soft, non-tender, nondistended. MUSCULOSKELETAL: No cyanosis, or edema. Left upper chest wound stable Laboratory Laboratory Tests Test 07/15/17 05:55 White Blood Count 11.1 TH/MM3 Red Blood Count 3.47 MIL/MM3 Hemoglobin 10.5 GM/DL Hematocrit 31.9 % Mean Corpuscular Volume 92.0 FL Mean Corpuscular Hemoglobin 30.3 PG Mean Corpuscular Hemoglobin Concent 33.0 % Red Cell Distribution Width 16.2 % Platelet Count 138 TH/MM3 Mean Platelet Volume 7.4 FL Neutrophils (%) (Auto) 85.3 % Lymphocytes (%) (Auto) 6.5 % Monocytes (%) (Auto) 7.7 % Eosinophils (%) (Auto) 0.4 % Basophils (%) (Auto) 0.1 % Neutrophils # (Auto) 9.5 TH/MM3 Lymphocytes # (Auto) 0.7 TH/MM3 Monocytes # (Auto) 0.9 TH/MM3 Eosinophils # (Auto) 0.0 TH/MM3 Basophils # (Auto) 0.0 TH/MM3 CBC Comment DIFF FINAL Differential Comment Prothrombin Time 12.0 SEC Prothromb Time International Ratio 1.2 RATIO Blood Urea Nitrogen 9 MG/DL Creatinine 0.67 MG/DL Random Glucose 168 MG/DL Total Protein 6.4 GM/DL Calcium Level 7.4 MG/DL Phosphorus Level 1.8 MG/DL Magnesium Level 2.0 MG/DL Sodium Level 140 MEQ/L Potassium Level 3.7 MEQ/L Chloride Level 109 MEQ/L Carbon Dioxide Level 18.9 MEQ/L Anion Gap 12 MEQ/L Estimat Glomerular Filtration Rate 114 ML/MIN Protein Corrected Calcium 7.8 MG/DL Assessment and Plan Problem List: (1) Syncope ICD Codes: R55 - Syncope and collapse Status: Acute (2) Atrial fibrillation ICD Codes: I48.91 - Unspecified atrial fibrillation (3) Pacemaker ICD Codes: Z95.0 - Presence of cardiac pacemaker (4) Status post ablation operation for arrhythmia ICD Codes: Z98.890 - Other specified postprocedural states; Z86.79 - Personal history of other diseases of the circulatory system (5) Hypotension ICD Codes: I95.9 - Hypotension, unspecified Status: Acute (6) Dehydration ICD Codes: E86.0 - Dehydration Status: Acute Assessment and Plan Wound stable. Normal pacemaker function. Resume anticoagulation. Increase activity. D/w pt and . Problem Qualifiers (1) Syncope: Qualified Codes: R55 - Syncope and collapse (2) Hypotension: Qualified Codes: I95.9 - Hypotension, unspecified Gerald Gonzalez MD Jul 15, 2017 18:02
[2017-07-15] MEDS ORDERED: WARFARIN SOD 2.5 MG TAB PO ONE (18:15)
[2017-07-15] MEDS: PRAVASTATIN SOD 20 MG TAB PO SCH (22:17)
[2017-07-15] MEDS: NIACIN 500 MG EXTENDED RELEASE TAB PO SCH (22:17)
[2017-07-15] MEDS: TAMSULOSIN HCL 0.4 MG CAP PO SCH (22:17)
[2017-07-15] MEDS: cefTRIAXone INJ 1,000 MG in SODIUM CHLORIDE 0.9% INJ 100 ML IV SCH (22:18)
[2017-07-16 00:15] VITALS: PULSE 110
[2017-07-16 04:10] VITALS: PULSE 100
[2017-07-16 06:15] VITALS: PULSE 110
[2017-07-16 06:43] LABS: INTERNATIONAL NORMALIZED RATIO 1.2 RATIO; PROTHROMBIN TIME - PATIENT 11.7 SEC (9.8-11.6)
[2017-07-16] MEDS: CARBIDOPA/LEVODOPA 25 MG/100 MG TAB PO SCH ×2 (07:32→12:59)
[2017-07-16 08:00] VITALS: BP 135/76; PULSE 104; PULSE 92; RESP 16; TEMP 98.8; O2SAT 94
[2017-07-16] MEDS: INSULIN ASPART SUPPLEMENTAL SCALE SQ SCH ×2 (08:00→11:52)
--- NOTE | 2017-07-16 08:21 | HHI.PR ---
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 07/14: stable seen in his bedroom, in the presence of his and Daughter, will have procedure this afternoon by Doctor Gerald Gonzalez 07/15: Seen in his bedroom his present, discussed with nurse Miss Quezada, Phosphorus 1.8 given 21 mmol not yet cleared by Cardiology for discharge 07/16: Stable in his bedroom, with his , she accepted to have Home Health care at home, not yet cleared for discharge by client resolution specialist, no nausea , vomit or diarrhea, denies chest pain or shortness of breath Objective Vital Signs Date Time Temp Pulse Resp B/P (MAP) Pulse Ox O2 Delivery O2 Flow Rate FiO2 07/16/17 06:15 110 07/16/17 04:10 100 07/16/17 00:35 16 07/16/17 00:15 110 07/15/17 22:09 96 07/15/17 21:30 97.7 86 16 117/80 (92) 95 07/15/17 21:24 98.3 96 16 134/84 (101) 07/15/17 21:00 Room Air 21 07/15/17 18:43 74 07/15/17 17:00 79 07/15/17 16:05 78 07/15/17 15:00 77 07/15/17 15:00 97.1 77 18 106/77 (87) 96 07/15/17 14:00 77 07/15/17 12:00 51 14 139/56 (83) 99 07/15/17 12:00 51 07/15/17 11:00 89 07/15/17 11:00 89 I/O 07/15/17 07/15/17 07/15/17 07/16/17/17/18 1/17/18 07:00 15:00 23:00 07:00 15:00 23:00 Intake Total 1862 ml 400 ml 340 ml Output Total 600 ml 475 ml Balance 1262 ml 400 ml -135 ml Intake Oral 240 ml 400 ml 240 ml IV Total 1622 ml 100 ml Output Urine Total 600 ml 475 ml # Voids 4 # Bowel Movements 0 2 Result Diagram: 07/15/17 0555 07/15/17 0555 Imaging Last Impressions Chest X-Ray 07/14/17 0000 Signed Impressions: Service Date/Time: Friday, July 14, 2017 19:05 - CONCLUSION: 1. Left- sided pacing device in good position without pneumothorax. 2. Pulmonary vascular engorgement. Wagner Martinez Jr., MD Ribs X-Ray 07/11/17 0000 Signed Impressions: Service Date/Time: Tuesday, July 11, 2017 10:45 - CONCLUSION: Negative for rib fracture. Adalberto Ball MD FACR Abdomen/Pelvis CT 07/11/17 0000 Signed Impressions: Service Date/Time: Tuesday, July 11, 2017 15:26 - CONCLUSION: 1. Diffuse irregular bladder wall thickening particularly near the dome with irregular sacculations and associated mild bilateral hydroureteronephrosis. Findings likely reflect bladder outlet obstruction with mild post obstructive uropathy. However, differential consideration includes bladder malignancy. 2. Nonspecific heterogeneous and heterogeneously prominent prostate gland. 3. Exophytic indeterminate cyst arising from the superior pole of right kidney measuring up to 2.9 cm. Statistically, this reflects a complex hemorrhagic or proteinaceous cyst. Followup examination may be performed with ultrasound exam in 6 months to determine stability as clinically warranted. 4. Prominent coronary artery calcifications. Rafael Lazar MD Head CT 07/10/17 1609 Signed Impressions: Service Date/Time: June 17:05 - CONCLUSION: Stable noncontrast head CT with no evidence of fracture or hemorrhage. Yaw Waggoner MD Carotid Artery Ultrasound 07/10/17 0000 Signed Impressions: Service Date/Time: June 21:32 - CONCLUSION: Bilateral carotid atherosclerosis, mild to moderate and fairly focal on the right, moderate and longer segment on the left. Please see above. No hemodynamically significant stenosis demonstrated on either side. Macario Hollis MD Procedures Successful placement of [employer] Anthony single chamber MRI-compatible pacemaker. Other Results Laboratory Tests Test 07/10/17 20:40 07/11/17 03:48 07/12/17 19:44 07/15/17 05:55 Urine Color YELLOW Urine Turbidity CLOUDY Urine pH 5.5 Urine Specific [place] 1.020 Urine Protein 30 mg/dL Urine Glucose (UA) NEG mg/dL Urine Ketones TRACE mg/dL Urine Occult Blood SMALL Urine Nitrite NEG Urine Bilirubin NEG Urine Urobilinogen 2.0 MG/DL Urine Leukocyte Esterase LARGE Urine RBC 89 /hpf Urine WBC /hpf Urine Amorphous Sediment RARE Urine Bacteria MANY /hpf Urine Hyaline Casts 16 /lpf Microscopic Urinalysis Comment CATH-CULTURE IND Total Creatine Kinase 72 U/L Troponin I 0.03 NG/ML Digoxin Level 1.2 NG/ML White Blood Count 11.1 TH/MM3 Red Blood Count 3.47 MIL/MM3 Hemoglobin 10.5 GM/DL Hematocrit 31.9 % Mean Corpuscular Volume 92.0 FL Mean Corpuscular Hemoglobin 30.3 PG Mean Corpuscular Hemoglobin Concent 33.0 % Red Cell Distribution Width 16.2 % Platelet Count 138 TH/MM3 Mean Platelet Volume 7.4 FL Neutrophils (%) (Auto) 85.3 % Lymphocytes (%) (Auto) 6.5 % Monocytes (%) (Auto) 7.7 % Eosinophils (%) (Auto) 0.4 % Basophils (%) (Auto) 0.1 % Neutrophils # (Auto) 9.5 TH/MM3 Lymphocytes # (Auto) 0.7 TH/MM3 Monocytes # (Auto) 0.9 TH/MM3 Eosinophils # (Auto) 0.0 TH/MM3 Basophils # (Auto) 0.0 TH/MM3 CBC Comment DIFF FINAL Differential Comment Blood Urea Nitrogen 9 MG/DL Creatinine 0.67 MG/DL Random Glucose 168 MG/DL Total Protein 6.4 GM/DL Calcium Level 7.4 MG/DL Phosphorus Level 1.8 MG/DL Magnesium Level 2.0 MG/DL Sodium Level 140 MEQ/L Potassium Level 3.7 MEQ/L Chloride Level 109 MEQ/L Carbon Dioxide Level 18.9 MEQ/L Anion Gap 12 MEQ/L Estimat Glomerular Filtration Rate 114 ML/MIN Protein Corrected Calcium 7.8 MG/DL Test 07/16/17 05:54 Prothrombin Time 11.7 SEC Prothromb Time International Ratio 1.2 RATIO Objective Remarks GENERAL: No acute distress. SKIN: No rashes. Cool and dry. HEAD: Atraumatic. Normocephalic. EYES: No scleral icterus. Left lower lid ectropion. ENT: Nose without bleeding, purulent drainage. The patient is moderately hearing-impaired. NECK: Trachea midline. No JVD.. CARDIOVASCULAR: Regular rate and rhythm without murmurs, gallops, or rubs. left upper chest with dressed wound, left arm in sling. RESPIRATORY: Clear to auscultation. Breath sounds equal bilaterally. No wheezes , rales, or rhonchi. GASTROINTESTINAL: Abdomen soft, non-tender, nondistended. No guarding. MUSCULOSKELETAL: Extremities without clubbing, cyanosis, or edema. No calf tenderness. NEUROLOGICAL: Awake and alert. Motor and sensory grossly within normal limits. Normal speech. Medications and IVs Current Medications Medications (Trade) Dose Ordered Sig/Kimberley Route Start Time Stop Time Status Last Admin (NS Flush) 2 ml UNSCH PRN IV FLUSH 07/10/17 20:00 (NS Flush) 2 ml BID IV FLUSH 07/10/17 21:00 07/15/17 22:17 (Narcan Inj) 0.4 mg UNSCH PRN IV PUSH 07/10/17 20:00 (Zyloprim) 100 mg DAILY PO 07/11/17 09:00 07/15/17 10:01 (Aspirin Chew) 81 mg DAILY CHEW 07/11/17 09:00 07/15/17 09:00 (Keppra) 500 mg BID PO 07/10/17 21:45 07/15/17 22:17 (Slo-Niacin) 1,000 mg HS PO 07/10/17 21:45 07/15/17 22:17 (Proscar) 5 mg DAILY PO 07/11/17 09:00 07/15/17 10:01 (Flomax) 0.8 mg HS PO 07/11/17 09:00 07/15/17 22:17 (Sinemet 25-100 Mg) 1 tab Q8HR PO 07/11/17 06:00 07/16/17 07:32 (Tylenol) 650 mg Q4H PRN PO 07/11/17 06:30 07/15/17 22:17 (Lanoxin) 0.25 mg DAILY PO 07/12/17 09:00 07/15/17 10:01 (Pravachol) 20 mg HS PO 07/12/17 21:00 07/15/17 22:17 Ceftriaxone Sodium 1000 mg/ Sodium Chloride 100 ml @ 200 mls/hr Q24H IV 07/11/17 21:00 07/15/17 22:18 Sodium Chloride 1,000 ml @ 84 mls/hr [id number] IV 07/12/17 10:00 07/15/17 09:30 (D50w (Vial) Inj) 50 ml UNSCH PRN IV PUSH 07/14/17 20:00 (Glucagon Inj) 1 mg UNSCH PRN OTHER 07/14/17 20:00 (NovoLOG SUPPLEMENTAL SCALE) 1 ACHS SLIDING SCALE SQ 07/14/17 21:00 07/15/17 12:56 (Coumadin) 2.5 mg DAILY@16 PO 07/16/17 16:00 A/P Assessment and Plan 1. Hypotension on hold Metoprolol, Lisinopril, And Lasix, Improving after Pacemaker placement. 2. 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 3. Parkinson's Disease to continue Home medicines 4. History of Rectal Cancer status post chemotherapy and radiation therapy 5. CAD with CABG in 2001. 6. Acute on chronic renal insufficiency- improved 7. UTI on Ceftriaxone Urine culture Proteus Mirabilis on Ceftriaxone, continue at this time may be removed tomorrow. 8. left sided Chest Wall pain after a fall with negative chest for ribs. 9. DM II Uncontrolled continue sliding scale and started on Levemir 10 units BID and follow. 10. Hypophosphatemia replaced. DVT prophylaxis SCDs. Discussed with patient, his discussed with nurse Pilar Discharge Planning Once Cleared by client resolution specialist. Robinson Toscano MD Jul 16, 2017 08:21
[2017-07-16] MEDS: DIGOXIN 0.25 MG TAB PO SCH (08:33)
[2017-07-16] MEDS: FINASTERIDE 5 MG TAB PO SCH (08:33)
[2017-07-16] MEDS: levETIRAcetam 500 MG TAB PO SCH (08:33)
[2017-07-16] MEDS: ALLOPURINOL 100 MG TAB PO SCH (08:33)
[2017-07-16] MEDS: ASPIRIN 81 MG CHEW TAB CHEW SCH (08:33)
[2017-07-16] MEDS: ACETAMINOPHEN 325 MG TAB PO PRN (08:34)
[2017-07-16] MEDS: SODIUM CHLORIDE 0.9% FLUSH 10 ML FLUSH IV FLUSH SCH (08:34)
[2017-07-16] MEDS: SODIUM CHLOR 0.9% 1000 ML INJ 1,000 ML IV SCH (08:34)
[2017-07-16 11:00] VITALS: BP 117/73; PULSE 90; RESP 18; TEMP 97.9; O2SAT 94
[2017-07-16] MEDS ORDERED: INSULIN DETEMIR 100 UNITS/ML VIAL SQ ONE (14:00)
[2017-07-16 15:00] VITALS: BP 125/69; PULSE 90; RESP 20; TEMP 98.2; O2SAT 94
[2017-07-16] MEDS ORDERED: DIGO0.25 PO ×2 (15:24→15:44)
--- NOTE | 2017-07-16 15:28 | HHI.DS ---
Discharge Summary Admission Date Jul 11, 2017 at 11:27 Discharge Date: Jul 16, 2017 Admitting Diagnosis syncope, hypotension, dehydration (1) Hypotension ICD Code: I95.9 - Hypotension, unspecified Diagnosis: Principal Status: Acute (2) Syncope ICD Code: R55 - Syncope and collapse Diagnosis: Principal Status: Acute (3) Dehydration ICD Code: E86.0 - Dehydration Diagnosis: Principal Status: Acute Procedures Status post EP Study, AV kimberley Ablation and Successful placement of [employer] single chamber MRI-compatible pacemaker. Brief History - From Admission Mr. Price is an 82 year-old male with a PMH of PE, Parkinson's disease, brain hemorrhage, rectal cancer s/p chemotherapy and radiation, CAD with CABG in 2001 , BPH, T2DM, and hyperlipidemia who presented to the ER for evaluation of syncope with fall. The patient is seen in the CDU. History is obtained from patient and his when he defers questions to her. The patient had multiple episodes of syncope starting 07/09/2017 and resulting in his visit to the emergency room on 2017. On the morning of 07/10/2017, the patient got up to go the bathroom and around 9 AM, and while his mewpbkmi-co-wtd was watching him wash his hands afterwards, he started to look "wobbly"and she was able to catch him before he hit the ground. He had a full syncopal episode that he has no recollection of. There was no seizure-like activity, loss of bowel or bladder, or biting of tongue. He refused to come to the emergency room. He had a second incident around 4:00 PM, this was again witnessed and he was caught before he hit the ground. He also had a couple of episodes while sitting up in bed. The final episode occurred when he came to the emergency room and was standing up to get into the wheelchair, he lost consciousness and passed out again. Family was able to help him into his chair. The patient denies any chest pain, palpitations, shortness of breath, or unilateral weakness. The patient reports he has been feeling lightheaded and dizzy. The patient denies any nausea, vomiting, or diarrhea. He denies any black or bloody stools. He denies any hematuria. He has been having diminished urinary output. He also denies any recent fever or chills though states he's been cold lately given the cold snap of the weather. The patient and his are from [place] and arrived here by car June 18. The patient was extremely reluctant to come to the hospital for evaluation but his was able to talk him into it. CBC/BMP: 07/15/17 0555 07/15/17 0555 Significant Findings Laboratory Tests Test 07/14/17 06:38 07/15/17 05:55 07/16/17 05:54 Prothrombin Time 13.9 SEC (9.8-11.6) 12.0 SEC (9.8-11.6) 11.7 SEC (9.8-11.6) Random Glucose 160 MG/DL (74-106) 168 MG/DL (74-106) Calcium Level 7.7 MG/DL (8.5-10.1) 7.4 MG/DL (8.5-10.1) Phosphorus Level 1.4 MG/DL (2.5-4.9) 1.8 MG/DL (2.5-4.9) White Blood Count 11.1 TH/MM3 (4.0-11.0) Red Blood Count 3.47 MIL/MM3 (4.50-5.90) Hemoglobin 10.5 GM/DL (13.0-17.0) Hematocrit 31.9 % (39.0-51.0) Platelet Count 138 TH/MM3 (150-450) Neutrophils (%) (Auto) 85.3 % (16.0-70.0) Lymphocytes (%) (Auto) 6.5 % (9.0-44.0) Neutrophils # (Auto) 9.5 TH/MM3 (1.8-7.7) Lymphocytes # (Auto) 0.7 TH/MM3 (1.0-4.8) Chloride Level 109 MEQ/L (98-107) Carbon Dioxide Level 18.9 MEQ/L (21.0-32.0) Protein Corrected Calcium 7.8 MG/DL (8.5-10.1) Imaging Last Impressions Chest X-Ray 07/14/17 0000 Signed Impressions: Service Date/Time: Friday, July 14, 2017 19:05 - CONCLUSION: 1. Left- sided pacing device in good position without pneumothorax. 2. Pulmonary vascular engorgement. Wagner Martinez Jr., MD Ribs X-Ray 07/11/17 0000 Signed Impressions: Service Date/Time: Tuesday, July 11, 2017 10:45 - CONCLUSION: Negative for rib fracture. Adalberto Ball MD FACR Abdomen/Pelvis CT 07/11/17 0000 Signed Impressions: Service Date/Time: Tuesday, July 11, 2017 15:26 - CONCLUSION: 1. Diffuse irregular bladder wall thickening particularly near the dome with irregular sacculations and associated mild bilateral hydroureteronephrosis. Findings likely reflect bladder outlet obstruction with mild post obstructive uropathy. However, differential consideration includes bladder malignancy. 2. Nonspecific heterogeneous and heterogeneously prominent prostate gland. 3. Exophytic indeterminate cyst arising from the superior pole of right kidney measuring up to 2.9 cm. Statistically, this reflects a complex hemorrhagic or proteinaceous cyst. Followup examination may be performed with ultrasound exam in 6 months to determine stability as clinically warranted. 4. Prominent coronary artery calcifications. Rafael Lazar MD Head CT 07/10/17 1609 Signed Impressions: Service Date/Time: June 17:05 - CONCLUSION: Stable noncontrast head CT with no evidence of fracture or hemorrhage. Yaw Waggoner MD Carotid Artery Ultrasound 07/10/17 0000 Signed Impressions: Service Date/Time: June 21:32 - CONCLUSION: Bilateral carotid atherosclerosis, mild to moderate and fairly focal on the right, moderate and longer segment on the left. Please see above. No hemodynamically significant stenosis demonstrated on either side. Macario Hollis MD PE at Discharge GENERAL: No acute distress. SKIN: No rashes. Cool and dry. HEAD: Atraumatic. Normocephalic. EYES: No scleral icterus. Left lower lid ectropion. ENT: Nose without bleeding, purulent drainage. The patient is moderately hearing-impaired. NECK: Trachea midline. No JVD.. CARDIOVASCULAR: Regular rate and rhythm without murmurs, gallops, or rubs. left upper chest with dressed wound, left arm in sling. RESPIRATORY: Clear to auscultation. Breath sounds equal bilaterally. No wheezes , rales, or rhonchi. GASTROINTESTINAL: Abdomen soft, non-tender, nondistended. No guarding. MUSCULOSKELETAL: Extremities without clubbing, cyanosis, or edema. No calf tenderness. NEUROLOGICAL: Awake and alert. Motor and sensory grossly within normal limits. Normal speech. 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 07/14: stable seen in his bedroom, in the presence of his and Daughter, will have procedure this afternoon by Doctor Gerald Gonzalez 07/15: Seen in his bedroom his present, discussed with nurse Miss Quezada, Phosphorus 1.8 given 21 mmol not yet cleared by Cardiology for discharge 07/16: Stable in his bedroom, with his , she accepted to have Home Health care at home, not yet cleared for discharge by marketing content specialist, no nausea , vomit or diarrhea, denies chest pain or shortness of breath Assessment and Plan 1. Hypotension on hold Metoprolol, Lisinopril, And Lasix, Improving after Pacemaker placement. 2. 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 3. Parkinson's Disease to continue Home medicines 4. History of Rectal Cancer status post chemotherapy and radiation therapy 5. CAD with CABG in 2001. 6. Acute on chronic renal insufficiency- improved 7. UTI on Ceftriaxone Urine culture Proteus Mirabilis on Ceftriaxone, continue at this time may be removed tomorrow. 8. left sided Chest Wall pain after a fall with negative chest for ribs. 9. DM II Uncontrolled continue sliding scale and started on Levemir 10 units BID and follow. 10. Hypophosphatemia replaced. DVT prophylaxis SCDs. Discussed with patient, his discussed with nurse Miss Quezada Discharge Planning Once Cleared by marketing content specialist. Pt Condition on Discharge: Good Discharge Disposition: Disch w/ Home Health Serv Discharge Time: > 30 minutes Discharge Instructions DIET: Follow Instructions for: Heart Healthy Diet, Diabetic Diet Activities you can perform: Regular-No Restrictions Robinson Toscano MD Jul 16, 2017 15:28
--- NOTE | 2017-07-16 15:59 | PD.CARD.PN ---
Subjective Subjective Remarks No CP or SOB Objective Vital Signs / I&O Vital Signs Date Time Temp Pulse Resp B/P (MAP) Pulse Ox O2 Delivery O2 Flow Rate FiO2 07/16/17 15:00 90 07/16/17 15:00 98.2 90 20 125/69 (87) 94 07/16/17 11:00 97.9 90 18 117/73 (88) 94 07/16/17 11:00 90 07/16/17 10:22 Room Air 94 07/16/17 09:53 20 07/16/17 08:00 104 07/16/17 08:00 98.8 92 16 135/76 (95) 94 07/16/17 06:15 110 07/16/17 04:10 100 07/16/17 00:15 110 07/15/17 22:09 96 07/15/17 21:30 97.7 86 16 117/80 (92) 95 07/15/17 21:24 98.3 96 16 134/84 (101) 07/15/17 21:00 Room Air 21 07/15/17 18:43 74 07/15/17 17:00 79 07/15/17 16:05 78 I/O 07/15/17 07/15/17 07/15/17 07/16/17 07/16/17 07/16/17 06:59 14:59 22:59 06:59 14:59 22:59 Intake Total 1862 ml 400 ml 340 ml Output Total 600 ml 475 ml Balance 1262 ml 400 ml -135 ml Intake Oral 240 ml 400 ml 240 ml IV Total 1622 ml 100 ml Output Urine Total 600 ml 475 ml # Voids 4 # Bowel Movements 0 2 Physical Exam GENERAL: In NAD SKIN: Warm and dry. HEAD: Normocephalic. EYES: No scleral icterus. No injection or drainage. NECK: Supple, trachea midline. No JVD or lymphadenopathy. CARDIOVASCULAR: Regular rate and rhythm without murmurs, gallops, or rubs. RESPIRATORY: Breath sounds equal bilaterally. No accessory muscle use. GASTROINTESTINAL: Abdomen soft, non-tender, nondistended. MUSCULOSKELETAL: No cyanosis, or edema. Left upper chest wound stable Laboratory Laboratory Tests Test 07/16/17 05:54 Prothrombin Time 11.7 SEC Prothromb Time International Ratio 1.2 RATIO Assessment and Plan Problem List: (1) Syncope ICD Codes: R55 - Syncope and collapse Status: Acute (2) Atrial fibrillation ICD Codes: I48.91 - Unspecified atrial fibrillation (3) Pacemaker ICD Codes: Z95.0 - Presence of cardiac pacemaker (4) Status post ablation operation for arrhythmia ICD Codes: Z98.890 - Other specified postprocedural states; Z86.79 - Personal history of other diseases of the circulatory system (5) Hypotension ICD Codes: I95.9 - Hypotension, unspecified Status: Acute (6) Dehydration ICD Codes: E86.0 - Dehydration Status: Acute Assessment and Plan No new cardiac issues. Wound remains stable. Normal pacemaker function. Continue anticoagulation. Increase activity. DC home. F/u in 1 week. Problem Qualifiers (1) Syncope: Qualified Codes: R55 - Syncope and collapse (2) Hypotension: Qualified Codes: I95.9 - Hypotension, unspecified Gerald Gonzalez MD Jul 16, 2017 15:59
[2017-07-16] MEDS ORDERED: WARFARIN SOD 2.5 MG TAB PO SCH (16:00)
[2017-07-16] MEDS ORDERED: INSULIN DETEMIR 100 UNITS/ML VIAL SQ SCH (21:00)
== END 2017-07-16 15:50 | disposition home health service (06) | DRG 243 ==
LOC: NEPE 15:51 → NEDA 19:10 → NEPGCP 21:02 → OBSVTOIN 07-11 11:27 → HCIS 07-11 12:21
PROVIDERS: ADMIT Internal Medicine; ATTEND Internal Medicine
PROC: 02HK3JZ Insertion of Pacemaker Lead into Right Ventricle, Percutaneous Approach (ICD-10-PCS; 2017-07-14)
PROC: 02583ZZ Destruction of Conduction Mechanism, Percutaneous Approach (ICD-10-PCS; 2017-07-14)
PROC: 4A0234Z Measurement of Cardiac Electrical Activity, Percutaneous Approach (ICD-10-PCS; 2017-07-14)
PROC: 02K83ZZ Map Conduction Mechanism, Percutaneous Approach (ICD-10-PCS; 2017-07-14)
PROC: 0JH604Z Insertion of Pacemaker, Single Chamber into Chest Subcutaneous Tissue and Fascia, Open Approach (ICD-10-PCS; principal; 2017-07-14 15:00)
DX: I49.5 Sick sinus syndrome (principal); I48.92 Unspecified atrial flutter; E11.22 Type 2 diabetes mellitus with diabetic chronic kidney disease; E11.51 Type 2 diabetes mellitus with diabetic peripheral angiopathy without gangrene; E11.65 Type 2 diabetes mellitus with hyperglycemia; I48.2 Chronic atrial fibrillation; G20 Parkinson's disease; E86.0 Dehydration; I12.9 Hypertensive chronic kidney disease with stage 1 through stage 4 chronic kidney disease, or unspecified chronic kidney disease; N13.8 Other obstructive and reflux uropathy; N39.0 Urinary tract infection, site not specified; E83.39 Other disorders of phosphorus metabolism; Z95.1 Presence of aortocoronary bypass graft; H91.90 Unspecified hearing loss, unspecified ear; Z79.01 Long term (current) use of anticoagulants; M19.90 Unspecified osteoarthritis, unspecified site; I25.10 Atherosclerotic heart disease of native coronary artery without angina pectoris; Z85.048 Personal history of other malignant neoplasm of rectum, rectosigmoid junction, and anus; Z92.21 Personal history of antineoplastic chemotherapy; Z92.3 Personal history of irradiation; N18.9 Chronic kidney disease, unspecified; Z79.84 Long term (current) use of oral hypoglycemic drugs; E78.5 Hyperlipidemia, unspecified; Z86.711 Personal history of pulmonary embolism; I45.10 Unspecified right bundle-branch block; I08.1 Rheumatic disorders of both mitral and tricuspid valves; N40.1 Benign prostatic hyperplasia with lower urinary tract symptoms; Z91.81 History of falling
CPT/HCPCS: 33207; 70450; 71045; 71101; 74177; 76937; 80048; 80162; 81001; 82550; 82948; 83735; 84100; 84155; 84484; 85025; 85610; 87077; 87086; 87186; 93005; 93306; 93613; 93620; 93650; 93880; 96360; 96361; C1730; C1732; C1786; C1898; C2630; G0378; J0171; J0330; J0461; J0690; J0696; J1580; J1644; J1815; J2250; J3010; J3370; J3475; J7030; J7040; J7050; Q9963; Q9967